=== PATIENT | female | born 1965 ===

== ENCOUNTER 2018-04-29 10:01 | Inpatient (IN) | payer OTHER ==
[2018-04-29 10:05] VITALS: BMI 18.4
[2018-04-29] MEDS ORDERED: Sodium Chloride 0.9% 1,000 ML IV STA (10:33)
--- NOTE | 2018-04-29 10:37 | ED PDOC ---
HPI: Abdomen Additional Complaint(s): Stephanie Coburn [id number] CC: RUQ abdominal pain HPI: 53 yo female with PMHx prediabetes presents to ER with complaints of intermittent RUQ abdominal pain (12/18) that radiates to her back associated with nausea x 2 days. Patient reports she had spaghetti with lots of cheese 2 days ago. Patient took pain medication that was sent from [place] with some relief. States she has hx similar pain about 6 months and her PMD told her she had gallstone (no images were done). Denies any nausea now. Denies any chest pain, dyspnea, cough, headache, dizziness, vomiting, calf pain, fever or chills. PMD: Dr. Kirby PMHx: prediabetes PSHx: denies Social hx: denies smoking cigarettes, drinking ETOH or using drugs Family hx: denies hx DMII, HTN or CA Medication: pain meds prn Allergies: PCN: seizures <Sultan Cecilio - Last Filed: 04/29/18 14:17> History Per: Patient <Jayy Estes - Last Filed: 04/29/18 14:47> Time Seen by Provider: 04/29/18 10:08 Chief Complaint (Nursing): Abdominal Pain Supervising Attending Note - Supervising Attending Note The Documented history was done by the: Physician Special Procedure Tech The documented physical exam was done by the: Physician Special Procedure Tech The documented procedures were done by the: Physician Special Procedure Tech - Attestation: I have personally seen and examined this patient.: Yes I have fully participated in the care of the patient.: Yes I have reviewed all pertinent clinical information: Yes - Notes: Notes:: RUQ pain. Hx of gallstones. <Jayy Estes M - Last Filed: 04/29/18 14:47> Past Medical History Vital Signs: Last Vital Signs Temp 97.8 F 04/29/18 10:04 Pulse 91 H 04/29/18 10:04 Resp 18 04/29/18 10:04 BP 110/76 04/29/18 10:04 Pulse Ox 99 04/29/18 10:04 <Sultan Cecilio - Last Filed: 04/29/18 14:17> Vital Signs: Last Vital Signs Temp 97.8 F 04/29/18 10:04 Pulse 91 H 04/29/18 10:04 Resp 18 04/29/18 10:04 BP 110/76 04/29/18 10:04 Pulse Ox 99 04/29/18 10:50 - Family History Family History: States: Unknown Family Hx <Jayy Estes Letha - Last Filed: 04/29/18 14:47> - Allergies Allergies/Adverse Reactions: Allergies Allergy/AdvReac Type Severity Reaction Status Date / Time Penicillins AdvReac HEADACHE Verified 04/29/18 10:32 Review of Systems ROS Statement: Except As Marked, All Systems Reviewed And Found Negative <P[place] - Last Filed: 04/29/18 14:17> Physical Exam - Physical Exam Appears: Positive for: Non-toxic, No Acute Distress Head Exam: Positive for: ATRAUMATIC, NORMOCEPHALIC Skin: Positive for: Normal Color ENT: Positive for: Normal ENT Inspection Neck: Positive for: Normal, Supple Cardiovascular/Chest: Positive for: Regular Rate, Rhythm. Negative for: Murmur Respiratory: Positive for: Normal Breath Sounds. Negative for: Crackles, Rales, Rhonchi, Respiratory Distress Gastrointestinal/Abdominal: Positive for: Bowel Sounds, Soft, Tenderness (Mild RUQ tenderness, No rebound tenderness or guarding). Negative for: Organomegaly, Distended, Guarding, Rebound Extremity: Positive for: Normal ROM Neurologic/Psych: Positive for: Alert, Oriented <Phoenix - Last Filed: 04/29/18 14:17> - Physical Exam Gastrointestinal/Abdominal: Positive for: Tenderness (RUQ) <Jayy Estes M - Last Filed: 04/29/18 14:47> - Laboratory Results Result Diagrams: 04/29/18 10:40 04/29/18 10:40 - ECG O2 Sat by Pulse Oximetry: 99 - Progress ED Course And Treament: 53 yo female has intermittent RUQ abdominal pain and nausea. Plan: CBC CMP LIPASE PT/INR RUQ abdominal US IVF NS 1 L @1000CC/HR Toradol 15 mg ivp WBC wnl RUQ abdominal US shows equivocal for cholecystitis. Will start emperic tx with cipro and flagyl Will get general surgery consult for evaluation. Plan d/w Dr. Estes <Sultan Cecilio - Last Filed: 04/29/18 14:17> - Laboratory Results Result Diagrams: 04/29/18 10:40 04/29/18 10:40 Interpretation Of Abn Labs: no acute - ECG Pulse Ox Interpretation: Normal - CT Scan/US US Other Rad Studies (CT/US): Read By Radiologist Other Rad Interpretation: cholecystitis - Progress ED Course And Treament: 1424: Stable. AAOx3. Pain free. Dr. Heath on surgical consult. Spoke with Dr. Villegas, who will admit. <Jayy Estes - Last Filed: 04/29/18 14:47> Disposition <Sultan Cecilio - Last Filed: 04/29/18 14:17> - Patient ED Disposition Is Patient to be Admitted: Yes Counseled Patient/Family Regarding: Studies Performed, Diagnosis - Disposition Disposition Time: 14:00 - Pt Status Changed To: Hospital Disposition Of: Inpatient - Admit Certification Admit to Inpatient:: After my assessment, the patient will require hospitalization for at least two midnights. This is because of the severity of symptoms shown, intensity of services needed, and/or the medical risk in this patient being treated as an outpatient. - POA Present On Arrival: None <Jayy Estes - Last Filed: 04/29/18 14:47> - Clinical Impression Clinical Impression: Cholecystitis - Disposition Condition: STABLE
[2018-04-29 11:13] LABS: INR 1.1; PROTHROMBIN TIME 12.6 Seconds (9.8-13.1)
[2018-04-29 11:14] LABS: BASO % 0.1 % (0.0-2.0); LYMPH # 0.6 K/uL (1.0-4.3); LYMPH % 5.6 % (20.0-40.0); MEAN CELL VOLUME 89.4 fl (81.0-99.0); MEAN CORPUSCULAR HEMOGLOBIN 29.5 pg (27.0-31.0); MEAN PLATELET VOLUME 9.2 fl (7.2-11.7); MONO # 0.5 K/uL (0.0-0.8); MONO % 4.6 % (0.0-10.0); NEUT % 89.7 % (50.0-75.0); PLATELET COUNT 193 K/uL (130-400); RBC 4.39 Mil/uL (3.80-5.20); RED CELL DISTRIBUTION WIDTH 12.6 % (11.5-14.5); WHITE BLOOD COUNT 10.1 K/uL (4.8-10.8)
[2018-04-29 11:16] LABS: PARTIAL THROMBOPLASTIN TIME 36.2 Seconds (25.6-37.1)
[2018-04-29 11:19] LABS: ALB/GLOB RATIO 1.3 (1.0-2.1); ALBUMIN 4.5 g/dL (3.5-5.0); ALT/SGPT 47 U/L (9-52); AST/SGOT 34 U/L (14-36); BLOOD UREA NITROGEN 11 mg/dl (7-17); CALCIUM 9.3 mg/dL (8.4-10.2); GFR NON-AFRICAN AMERICAN > 60; LIPASE 111 U/L (23-300)
[2018-04-29 12:07] LABS: BANDS 1 % (0-2); LYMPHOCYTE 5 % (20-50); MONOCYTE 6 % (0-10); NEUTROPHIL 88 % (42-75); PLATELET ESTIMATE NORMAL (NORMAL); TOTAL CELLS COUNTED 100
--- NOTE | 2018-04-29 13:43 | US ---
At the [facility] date of service: 04/29/2018 HISTORY: RUQ pain COMPARISON: None. TECHNIQUE: Sonographic evaluation of the right upper quadrant of the abdomen. FINDINGS: LIVER: Measures 13.2 cm in length. Normal echogenicity of the liver parenchyma. Simple cyst in right lobe of liver, 1.1 cm. Second cyst adjacent to gallbladder fossa, 1.0 x 1.5 x 1.7 cm. No solid mass. No biliary ductal dilatation. Smooth contour. GALLBLADDER: Cholelithiasis. Thickened gallbladder wall up to 4 mm. Negative sonographic Parnell sign. Trace pericholecystic fluid. Findings equivocal for acute cholecystitis. COMMON BILE DUCT: Measures 7 mm. No stones. No dilatation. PANCREAS: Unremarkable as visualized. No mass. No ductal dilatation. RIGHT KIDNEY: Measures 12.9 cm in length. Normal echogenicity. No calculus, mass, or hydronephrosis. AORTA: No aneurysmal dilatation. IVC: Unremarkable. OTHER FINDINGS: None . IMPRESSION: Cholelithiasis, thickened gallbladder wall and trace pericholecystic fluid, without sonographic Parnell sign. Findings equivocal for cholecystitis. If clinically warranted consider further evaluation with radionuclide hepatobiliary scan. Two simple cysts in liver. No additional abnormality.
[2018-04-29] MEDS ORDERED: metroNIDAZOLE 500mg/100ml NS 100 ML IV STA (14:02)
[2018-04-29] MEDS ORDERED: Ciprofloxacin 400mg/200ml D5W 400 MG/200 ML BAG IV STA (14:02)
[2018-04-29] MEDS ORDERED: Ciprofloxacin 400mg/200ml D5W 400 MG/200 ML BAG IVPB ONE (14:24)
--- NOTE | 2018-04-29 14:53 | CP.PCM.CON ---
History of Present Illness - History of Present Illness History of Present Illness: 53 y.o. female comes to the hospital c/o 3 days history of RUQ and epigastric abdominal pain. Denies any nausea or vomiting, no fever or chills, denies any diarrhea or constipation. States that had similar pains before but not as sev ere. Denies any sick contacts at home. No urinary symptoms, no other complains at present time. Review of Systems - Constitutional Constitutional: As Per HPI - EENT Eyes: Other (unremarkable) Ears: Other (unremarkable) Nose/Mouth/Throat: Other (unremarkable) - Breasts Breasts: Other (unremarkable) - Cardiovascular Cardiovascular: Other (unremarkable) - Respiratory Respiratory: Other (unremarkable) - Gastrointestinal Gastrointestinal: As Per HPI - Genitourinary Genitourinary: As Per HPI - Musculoskeletal Musculoskeletal: Other (unremarkable) - Integumentary Integumentary: Other (unremarkable) - Neurological Neurological: Other (unremarkable) - Psychiatric Psychiatric: Other (unremarkable) - Endocrine Endocrine: Other (unremarkable) - Hematologic/Lymphatic Hematologic: Other (unremarkable) Past Patient History - Past Social History Smoking Status: Never Smoked - CARDIAC Hx Cardiac Disorders: No - PULMONARY Hx Respiratory Disorders: No - NEUROLOGICAL Hx Neurological Disorder: No - HEENT Hx HEENT Problems: No - RENAL Hx Chronic Kidney Disease: No - ENDOCRINE/METABOLIC Hx Diabetes Mellitus Type 2: Yes ("prediabetes") - HEMATOLOGICAL/ONCOLOGICAL Hx Blood Disorders: No - INTEGUMENTARY Hx Dermatological Problems: No - MUSCULOSKELETAL/RHEUMATOLOGICAL Hx Musculoskeletal Disorders: No - GENITOURINARY/GYNECOLOGICAL Hx Genitourinary Disorders: No - PSYCHIATRIC Hx Psychophysiologic Disorder: No Hx Substance Use: No - SURGICAL HISTORY Hx Surgeries: No - ANESTHESIA Hx Anesthesia: No Meds Allergies/Adverse Reactions: Allergies Allergy/AdvReac Type Severity Reaction Status Date / Time Penicillins AdvReac HEADACHE Verified 04/29/18 10:32 - Medications Medications: Current Medications Ciprofloxacin (Cipro 400mg/200ml Dsw) 400 mg in 200 mls @ 200 mls/hr IV STAT STA; Protocol Stop: 04/29/18 15:01 Last Admin: 04/29/18 14:30 Dose: 200 mls/hr Metronidazole (Flagyl 500mg/100ml Ns) 100 mls @ 100 mls/hr IV STAT STA; Protocol Stop: 04/29/18 15:01 Physical Exam - Constitutional Appears: Well, Non-toxic, No Acute Distress - Head Exam Head Exam: ATRAUMATIC, NORMAL INSPECTION, NORMOCEPHALIC - Eye Exam Eye Exam: EOMI, Normal appearance, PERRL Pupil Exam: NORMAL ACCOMODATION, PERRL - ENT Exam ENT Exam: Mucous Membranes Moist, Normal Exam - Neck Exam Neck exam: Positive for: Full Rom, Normal Inspection - Respiratory Exam Respiratory Exam: Clear to Auscultation Bilateral, NORMAL BREATHING PATTERN - Cardiovascular Exam Cardiovascular Exam: REGULAR RHYTHM, +S1, +S2 - GI/Abdominal Exam GI & Abdominal Exam: Normal Bowel Sounds, Soft Additional comments: tender in the RUQ, ND, no rebound, no guarding, negative Parnell's sign - Rectal Exam Rectal Exam: Deferred - Extremities Exam Extremities exam: Positive for: full ROM, normal inspection - Back Exam Back exam: NORMAL INSPECTION - Neurological Exam Neurological exam: Alert, CN II-XII Intact, Normal Gait, Oriented x3 - Psychiatric Exam Psychiatric exam: Normal Affect, Normal Mood - Skin Skin Exam: Dry, Intact, Normal Color, Warm Results - Vital Signs Recent Vital Signs: Last Vital Signs Temp 98.7 F 04/29/18 14:48 Pulse 62 04/29/18 14:48 Resp 16 04/29/18 14:48 BP 117/72 04/29/18 14:48 Pulse Ox 99 04/29/18 14:48 - Labs Result Diagrams: 04/29/18 10:40 04/29/18 10:40 Labs: Laboratory Results - last 24 hr 04/29/18 04/29/18 04/29/18 10:40 10:40 10:40 WBC 10.1 RBC 4.39 Hgb 13.0 Hct 39.2 MCV 89.4 MCH 29.5 MCHC 33.0 RDW 12.6 Plt Count 193 MPV 9.2 Neut % (Auto) 89.7 H Lymph % (Auto) 5.6 L [place] % (Auto) 4.6 Eos % (Auto) 0.0 Baso % (Auto) 0.1 Neut # (Auto) 9.0 H Lymph # (Auto) 0.6 L [place] # (Auto) 0.5 Eos # (Auto) 0.0 Baso # (Auto) 0.0 Neutrophils % (Manual) 88 H Band Neutrophils % 1 Lymphocytes % (Manual) 5 L Monocytes % (Manual) 6 Platelet Estimate Normal RBC Morphology Normal PT 12.6 INR 1.1 APTT 36.2 Sodium 140 Potassium 3.8 Chloride 104 Carbon Dioxide 26 Anion Gap 14 BUN 11 Creatinine 0.5 L Est GFR ( Amer) > 60 Est GFR (Non-Af Amer) > 60 Random Glucose 127 H Calcium 9.3 Total Bilirubin 0.8 AST 34 ALT 47 Alkaline Phosphatase 72 Total Protein 7.9 Albumin 4.5 Globulin 3.4 Albumin/Globulin Ratio 1.3 Lipase 111 - Imaging and Cardiology US - abdomen Status: Image reviewed by me, Report reviewed by me Assessment & Plan - Assessment and Plan (Free Text) Assessment: 53 y.o. female with acute cholecystitis Plan: - Keep NPO - IV fluid hydration - pain control - Antibiotics - Zofran prn - Hold any anticoagulation - Plan for cholecystectomy in the morning - Will follow
--- NOTE | 2018-04-29 15:24 | CP.PCM.HP ---
History of Present Illness - History of Present Illness History of Present Illness: 53 yo female with PMHx prediabetes presents to ER with complaints of RUQ abdominal pain that started 3 days ago. Pain is in RUQ was mild 3 days ago but progressively worseniend to 10/10 yesterday, radiating to back and not completely alleviated by any medication. Patient reports eating potato, meatball, pasta, rice for last few days but now her appetite is decreased. Patient took pain medication called Plidan that was sent from [place] with some relief. States she has hx similar pain in the past but never this severe. Denies any nausea, chest pain, dyspnea, cough, headache, dizziness, vomiting, calf pain, fever or chills. Patient reports climbing 2-3 flights of stairs without getting SOB or CP. PMD: Dr. Kirby PMHx: Prediabetes(Was on Metformin in past but not currently) PSHx: Denies Social hx: Denies smoking cigarettes, drinking ETOH or using drugs Family hx: Denies hx DMII, HTN or CA Medication: pain meds prn, (Tried medication called Plidan from [place]) Allergies: PCN Present on Admission - Present on Admission Any Indicators Present on Admission: No History of DVT/PE: No History of Uncontrolled Diabetes: No Urinary Catheter: No Decubitus Ulcer Present: No Review of Systems - Review of Systems All systems: reviewed and no additional remarkable complaints except Review of Systems: RUQ pain radiating to back and loss of appetite - Constitutional Constitutional: absent: Chills, Fever, Headache - EENT Eyes: absent: Change in Vision - Cardiovascular Cardiovascular: absent: Chest Pain, Chest Pain at Rest, Chest Pain with Activity, Dyspnea, Dyspnea on Exertion - Respiratory Respiratory: absent: Cough - Gastrointestinal Gastrointestinal: Abdominal Pain. absent: Constipation, Diarrhea, Nausea, Vomiting - Genitourinary Genitourinary: absent: Change in Urinary Stream - Musculoskeletal Musculoskeletal: Back Pain. absent: Abnormal Gait - Psychiatric Psychiatric: Change in Appetite Past Patient History - Infectious Disease Hx of Infectious Diseases: None - Past Social History Smoking Status: Never Smoked - CARDIAC Hx Cardiac Disorders: No - PULMONARY Hx Respiratory Disorders: No - NEUROLOGICAL Hx Neurological Disorder: No - HEENT Hx HEENT Problems: No - RENAL Hx Chronic Kidney Disease: No - ENDOCRINE/METABOLIC Hx Diabetes Mellitus Type 2: Yes ("prediabetes") - HEMATOLOGICAL/ONCOLOGICAL Hx Blood Disorders: No - INTEGUMENTARY Hx Dermatological Problems: No - MUSCULOSKELETAL/RHEUMATOLOGICAL Hx Musculoskeletal Disorders: No - GENITOURINARY/GYNECOLOGICAL Hx Genitourinary Disorders: No - PSYCHIATRIC Hx Psychophysiologic Disorder: No Hx Substance Use: No - SURGICAL HISTORY Hx Surgeries: No - ANESTHESIA Hx Anesthesia: No Meds Allergies/Adverse Reactions: Allergies Allergy/AdvReac Type Severity Reaction Status Date / Time Penicillins AdvReac HEADACHE Verified 04/29/18 10:32 Physical Exam - Constitutional Appears: Non-toxic, In Acute Distress - Head Exam Head Exam: ATRAUMATIC, NORMOCEPHALIC - Eye Exam Eye Exam: EOMI, Normal appearance - ENT Exam ENT Exam: Mucous Membranes Moist - Neck Exam Neck exam: Positive for: Full Rom - Respiratory Exam Respiratory Exam: Clear to Auscultation Bilateral. absent: Rales, Rhonchi, Wheezes, Respiratory Distress - Cardiovascular Exam Cardiovascular Exam: REGULAR RHYTHM, +S1, +S2. absent: Systolic Murmur - GI/Abdominal Exam GI & Abdominal Exam: Normal Bowel Sounds, Tenderness. absent: Distended Additional comments: + Parnell sign - Extremities Exam Extremities exam: Negative for: calf tenderness, pedal edema, tenderness - Neurological Exam Neurological exam: Alert, Altered, Oriented x3 - Psychiatric Exam Psychiatric exam: Normal Affect, Normal Mood - Skin Skin Exam: Dry, Intact, Normal Color, Warm Results - Vital Signs Recent Vital Signs: Last Vital Signs Temp 98.7 F 04/29/18 14:53 Pulse 62 04/29/18 14:53 Resp 16 04/29/18 14:53 BP 117/72 04/29/18 14:53 Pulse Ox 99 04/29/18 14:48 - Labs Result Diagrams: 04/29/18 10:40 04/29/18 10:40 Labs: Laboratory Results - last 24 hr 04/29/18 04/29/18 04/29/18 10:40 10:40 10:40 WBC 10.1 RBC 4.39 Hgb 13.0 Hct 39.2 MCV 89.4 MCH 29.5 MCHC 33.0 RDW 12.6 Plt Count 193 MPV 9.2 Neut % (Auto) 89.7 H Lymph % (Auto) 5.6 L [place] % (Auto) 4.6 Eos % (Auto) 0.0 Baso % (Auto) 0.1 Neut # (Auto) 9.0 H Lymph # (Auto) 0.6 L [place] # (Auto) 0.5 Eos # (Auto) 0.0 Baso # (Auto) 0.0 Neutrophils % (Manual) 88 H Band Neutrophils % 1 Lymphocytes % (Manual) 5 L Monocytes % (Manual) 6 Platelet Estimate Normal RBC Morphology Normal PT 12.6 INR 1.1 APTT 36.2 Sodium 140 Potassium 3.8 Chloride 104 Carbon Dioxide 26 Anion Gap 14 BUN 11 Creatinine 0.5 L Est GFR ( Amer) > 60 Est GFR (Non-Af Amer) > 60 Random Glucose 127 H Calcium 9.3 Total Bilirubin 0.8 AST 34 ALT 47 Alkaline Phosphatase 72 Total Protein 7.9 Albumin 4.5 Globulin 3.4 Albumin/Globulin Ratio 1.3 Lipase 111 Assessment & Plan - Assessment and Plan (Free Text) Assessment: 53 y.o. female with PMHx of prediabetes not on any medications presents with 3 days of RUQ pain. US abdomen consistent with acute cholecystitis. Surgery on board. Scheduled for cholecystitis tomorrow. US Abdomen: Cholelithiasis, thickened gallbladder wall and trace pericholecystic fluid, without sonographic Parnell sign. Findings equivocal for cholecystitis. Plan: Acute cholecystitis - CBC, CMP, PT/PTT/INR WNL - Cipro 400 Q12 and Flagyl 500 mg Q8hr - Patient to remain NPO - Zofran prn for nausea - Hold any anticoagulation - Morphine 2mg IVP Q4 and Toradol 15 mg IVP for pain control - Patient medically stable, pending EKG, CXR - Surgery on Board: Scheduled for cholecystitis tomorrow AM. DVT Prophylaxis - SCDs Code status - Full code
--- NOTE | 2018-04-29 17:41 | RAD ---
Date of service: 04/29/2018 PROCEDURE: CHEST RADIOGRAPH, 1 VIEW HISTORY: pre-op COMPARISON: None available. FINDINGS: LUNGS: The lungs are hyperinflated and there is peribronchial thickening with chronic changes in both lungs. No focal consolidation. PLEURA: No pneumothorax or pleural effusion. CARDIOVASCULAR: The heart is normal in size. No aortic atherosclerotic calcifications present. OSSEOUS STRUCTURES: Within normal limits for the patient's age. VISUALIZED UPPER ABDOMEN: Normal. OTHER FINDINGS: None. IMPRESSION: No active pulmonary disease.
[2018-04-29] MEDS: Potassium Ch 20mEq in D5-1/2NS 1,000 ML IV SCH (18:00)
[2018-04-29] MEDS: metroNIDAZOLE 500mg/100ml NS 100 ML IVPB SCH (18:05)
[2018-04-29] MEDS: Ciprofloxacin 400mg/200ml D5W 400 MG/200 ML BAG IVPB SCH (22:05)
[2018-04-30] MEDS: metroNIDAZOLE 500mg/100ml NS 100 ML IVPB SCH ×3 (01:04→16:14)
[2018-04-30] MEDS: Potassium Ch 20mEq in D5-1/2NS 1,000 ML IV SCH (05:00)
[2018-04-30 06:15] LABS: HEMOGLOBIN 11.4 g/dL (12.0-16.0); MEAN CELL VOLUME 87.9 fl (81.0-99.0); MEAN CORPUSCULAR HEMOGLOBIN 29.9 pg (27.0-31.0); RBC 3.83 Mil/uL (3.80-5.20); RED CELL DISTRIBUTION WIDTH 12.6 % (11.5-14.5); WHITE BLOOD COUNT 6.5 K/uL (4.8-10.8)
[2018-04-30] MEDS ORDERED: Bupivacaine HCl 0.5% PF (30 ml) Inj ONE (07:22)
[2018-04-30] MEDS ORDERED: Propofol 10 mg/ml Inj (20 ML) ONE (07:25)
[2018-04-30] MEDS ORDERED: Succinylcholine 200 mg/10 ml Inj IV ONE (07:26)
[2018-04-30] MEDS ORDERED: Midazolam 2 MG/2 ML VIAL ONE (07:26)
[2018-04-30] MEDS ORDERED: Lidocaine 2% MPF (5 ml) Inj ONE (07:26)
[2018-04-30] MEDS ORDERED: Rocuronium 10 mg/ml (5 ml) ONE ×2 (07:27→09:26)
[2018-04-30] MEDS ORDERED: Lactated Ringer's 1,000 ML IV ONE ×2 (08:05→10:00)
[2018-04-30] MEDS: Ciprofloxacin 400mg/200ml D5W 400 MG/200 ML BAG IVPB SCH ×2 (09:56→21:12)
[2018-04-30] MEDS ORDERED: Ciprofloxacin 400mg/200ml D5W IVPB ONE (10:00)
[2018-04-30] MEDS ORDERED: metroNIDAZOLE 500mg/100ml NS IVPB ONE (10:15)
--- NOTE | 2018-04-30 10:28 | PCM.SURG1 ---
Surgeon's Initial Post Op Note - Surgeon's Notes Surgeon: Dr Melvin Chemistry Technologist: Dr Muñoz, Dr Osborne PGY4, Dr Angeles PGY1 Type of Anesthesia: General Endo Pre-Operative Diagnosis: acute cholecystitis Operative Findings: chronic cholecystitis with significant intra-abdominal adhesions Post-Operative Diagnosis: as above Operation Performed: laparoscopy. lysis of adhesions. open cholecystectomy. repair of gastrotomy Specimen/Specimens Removed: gallbladder Estimated Blood Loss: EBL {In ML}: 50 Blood Products Given: N/A Drains Used: Neeraj Post-Op Condition: Good Date of Surgery/Procedure: 04/30/18 Time of Surgery/Procedure: 10:28
[2018-04-30] MEDS: Lactated Ringer's 1,000 ML IV SCH ×3 (10:40→23:00)
[2018-04-30] MEDS ORDERED: Neostigmine 1:1000 (1 mg/ml) Inj ONE (10:45)
[2018-04-30] MEDS: HYDROmorphone 0.5 mg/0.5 ml ISec IVP PRN ×3 (11:12→12:00)
[2018-04-30] MEDS ORDERED: HYDROmorphone 0.5 mg/0.5 ml ISec IVP PRN (12:04)
[2018-04-30] MEDS ORDERED: Acetaminophen IV 1,000 MG in IV SUPPLIES 0 ML IVPB ONE (12:09)
--- NOTE | 2018-04-30 12:30 | CP.PCM.PN ---
<Sridhar Rodriguez - Last Filed: 04/30/18 15:16> Subjective - Date & Time of Evaluation Date of Evaluation: 04/30/18 Time of Evaluation: 12:10 - Subjective Subjective: 53 y/o F admitted for acute cholesystitis, s/p cholecystectomy on 04/30. POD 0 Patient seen and examined at bedside s/p surgery. Patient alert, awake and oriented x 3. Patient has received Morphine 2 mg IVP. Patient underwent Lap cholecystectomy converted to open due to extensive adhesions and repair of gastrotomy. Currently on NPO with NG tube placed. Patient denies Fever, chills, nausea, vomiting, diarrhea, CP or SOB. Objective - Vital Signs/Intake and Output Vital Signs (last 24 hours): Temp Pulse Resp BP Pulse Ox 96.4 F L 77 18 122/74 100 04/30/18 11:05 04/30/18 11:05 04/30/18 11:05 04/30/18 11:05 04/30/18 11:05 Intake and Output: 04/30/18 04/30/18 06:59 18:59 Intake Total 1400 Balance 1400 - Medications Medications: Current Medications Hydromorphone HCl (Dilaudid) 0.5 mg IVP Q15M PRN PRN Reason: Pain, severe (8-10) Stop: 04/30/18 13:13 Ciprofloxacin (Cipro 400mg/200ml Dsw) 400 mg in 200 mls @ 200 mls/hr IVPB Q12 AKIL; Protocol Last Admin: 04/30/18 09:56 Dose: Not Given Metronidazole (Flagyl 500mg/100ml Ns) 100 mls @ 100 mls/hr IVPB Q8 AKIL; Protocol Last Admin: 04/30/18 09:56 Dose: Not Given Lactated Ringer's (Lactated Ringer's) 1,000 mls @ 80 mls/hr IV .[id number] AKIL Metoclopramide HCl (Reglan) 10 mg IVP ONCE PRN PRN Reason: Nausea/Vomiting Stop: 04/30/18 13:15 Morphine Sulfate (Morphine) 2 mg IVP Q4 PRN PRN Reason: Pain, Mild (1-3) Ondansetron HCl (Zofran Inj) 4 mg IVP Q4 PRN PRN Reason: Nausea/Vomiting - Labs Labs: 04/30/18 05:30 04/29/18 10:40 PT 12.6 Seconds (9.8-13.1) 04/29/18 10:40 INR 1.1 04/29/18 10:40 APTT 36.2 Seconds (25.6-37.1) 04/29/18 10:40 - Constitutional Appears: No Acute Distress - Head Exam Head Exam: ATRAUMATIC, NORMOCEPHALIC - Eye Exam Eye Exam: EOMI, Normal appearance - ENT Exam ENT Exam: Mucous Membranes Moist - Respiratory Exam Respiratory Exam: Clear to Ausculation Bilateral. absent: Rales, Rhonchi, Wheezes, Respiratory Distress - Cardiovascular Exam Cardiovascular Exam: REGULAR RHYTHM, +S1, +S2. absent: Murmur - GI/Abdominal Exam GI & Abdominal Exam: Soft, Tenderness, Normal Bowel Sounds. absent: Distended Additional comments: Drain present, abdomen mild tenderness and nondistended. - Neurological Exam Neurological Exam: Alert, Awake, Oriented x3 - Psychiatric Exam Psychiatric exam: Normal Affect, Normal Mood - Skin Skin Exam: Dry, Intact, Normal Color Assessment and Plan - Assessment and Plan (Free Text) Assessment: 53 y.o. female with PMHx of prediabetes admitted for 3 days of RUQ pain and diagnosed with with acute cholecystitis. S/P surgery on 04/30 Lap cholecystect lilli converted to open. POD#0 US Abdomen: Cholelithiasis, thickened gallbladder wall and trace pericholecystic fluid, without sonographic Parnell sign. Findings equivocal for cholecystitis. Plan: Plan: Acute cholecystitis s/p Cholecystectomy - POD#0 - Continue Cipro 400 Q12 and Flagyl 500 mg Q8hr(day 2) - Patient to remain NPO - Zofran prn for nausea - Hold any anticoagulation - COntinue IVF 80 ml/hr - Morphine 2mg IVP Q4 - EKG NSR, RBB - F/U CBC, CMP tomorrow am - F/U Blood Cx DVT Prophylaxis - SCDs Code status - Full code <Jenny Bliss - Last Filed: 04/30/18 15:44> Objective - Vital Signs/Intake and Output Vital Signs (last 24 hours): Temp Pulse Resp BP Pulse Ox 99.2 F 93 H 18 106/66 96 04/30/18 13:10 04/30/18 13:10 04/30/18 13:10 04/30/18 13:10 04/30/18 13:10 Intake and Output: 04/30/18 04/30/18 06:59 18:59 Intake Total 1680 Balance 1680 - Medications Medications: Current Medications Ciprofloxacin (Cipro 400mg/200ml Dsw) 400 mg in 200 mls @ 200 mls/hr IVPB Q12 AKIL; Protocol Last Admin: 04/30/18 09:56 Dose: Not Given Metronidazole (Flagyl 500mg/100ml Ns) 100 mls @ 100 mls/hr IVPB Q8 AKIL; Protocol Last Admin: 04/30/18 09:56 Dose: Not Given Lactated Ringer's (Lactated Ringer's) 1,000 mls @ 80 mls/hr IV .[id number] AKIL Morphine Sulfate (Morphine) 2 mg IVP Q4 PRN PRN Reason: Pain, Mild (1-3) Ondansetron HCl (Zofran Inj) 4 mg IVP Q4 PRN PRN Reason: Nausea/Vomiting - Labs Labs: 04/30/18 05:30 04/29/18 10:40 PT 12.6 Seconds (9.8-13.1) 04/29/18 10:40 INR 1.1 04/29/18 10:40 APTT 36.2 Seconds (25.6-37.1) 04/29/18 10:40 Attending/Attestation - Attestation I have personally seen and examined this patient.: Yes I have fully participated in the care of the patient.: Yes I have reviewed all pertinent clinical information, including history, physical exam and plan: Yes Notes (Text): 04/30/18 15:44 agree with findings and plan as above lap aleah to open with adhesions. admit pt and continue iv abx surgery consult hd stable nad
--- NOTE | 2018-04-30 15:54 | CARD ---
APPROVED REPORT Date of service: 04/29/2018 EKG Measurement Heart [id number] <Conclusion> Normal sinus rhythm Low voltage QRS Incomplete RBBB Septal infarct, age undetermined Lateral infarct, age undetermined Abnormal ECG
[2018-04-30] MEDS: Morphine 4 MG/ML VIAL IVP PRN ×2 (15:55→19:43)
--- NOTE | 2018-04-30 16:14 | CARD ---
APPROVED REPORT Date of service: 04/30/2018 EKG Measurement Heart [id number] <Conclusion> Normal sinus rhythm Incomplete right bundle branch block Borderline ECG
[2018-05-01] MEDS: metroNIDAZOLE 500mg/100ml NS 100 ML IVPB SCH ×3 (00:19→15:59)
[2018-05-01] MEDS: Morphine 4 MG/ML VIAL IVP PRN ×4 (00:23→18:20)
[2018-05-01 07:10] LABS: BASO % 0.1 % (0.0-2.0); HEMOGLOBIN 10.6 g/dL (12.0-16.0); LYMPH # 0.5 K/uL (1.0-4.3); LYMPH % 5.2 % (20.0-40.0); MEAN CELL VOLUME 88.9 fl (81.0-99.0); MEAN CORPUSCULAR HEMOGLOBIN 30.2 pg (27.0-31.0); MEAN PLATELET VOLUME 9.2 fl (7.2-11.7); MONO # 0.8 K/uL (0.0-0.8); MONO % 8.4 % (0.0-10.0); NEUT # 8.5 K/uL (1.8-7.0); NEUT % 86.3 % (50.0-75.0); RBC 3.51 Mil/uL (3.80-5.20); RED CELL DISTRIBUTION WIDTH 12.7 % (11.5-14.5); WHITE BLOOD COUNT 9.9 K/uL (4.8-10.8)
[2018-05-01 07:31] LABS: ALB/GLOB RATIO 1.1 (1.0-2.1); ALBUMIN 3.2 g/dL (3.5-5.0); ALT/SGPT 69 U/L (9-52); AST/SGOT 70 U/L (14-36); BLOOD UREA NITROGEN 8 mg/dl (7-17); CALCIUM 8.3 mg/dL (8.4-10.2); GFR NON-AFRICAN AMERICAN > 60
--- NOTE | 2018-05-01 07:52 | OP ---
PROCEDURE DATE: 03/31/2018 PREOPERATIVE DIAGNOSIS: Acute cholecystitis. POSTOPERATIVE DIAGNOSIS: Acute cholecystitis. PROCEDURE: Laparoscopy converted to open cholecystectomy and closure of gastrotomy. SURGEON: Tomi Melvin MD AT RISK PARAPROFESSIONAL: SECOND AT RISK PARAPROFESSIONAL: Ash ANESTHESIA: General endotracheal intubation. INTRAVENOUS FLUIDS: Crystalloids. ESTIMATED BLOOD LOSS: 50 mL. INTRAOPERATIVE FINDINGS: Chronic and acute cholecystitis with pus in the gallbladder, extensive intra-abdominal adhesions to the gallbladder. SPECIMEN: Gallbladder. BRIEF HISTORY: Ms. Olguin is a very pleasant 53-year-old female who came to the hospital complaining of epigastric and right upper quadrant abdominal pain. Of note, the patient had similar symptoms several times before, and they were treated conservatively. However this time, the patient was very tender, was admitted to the hospital, treated with antibiotics and was taken to the operating room for the above stated procedure. All the risks and benefits of the procedure were explained to the patient and with the patient having a full understanding of all the risks and benefits involved, informed consent was obtained, and the patient was taken to the operating for above-stated procedure. DESCRIPTION OF PROCEDURE: The patient was brought into the operating room and placed supine on the operating room table. Bilateral Flowtron boots were applied to the patient's lower extremities. After successful induction of anesthesia and successful endotracheal intubation by the anesthesia team, the patient's abdomen was prepped with ChloraPrep stick and draped in a standard surgical fashion. Prior to the beginning of the procedure, a time-out was called in the room, and everyone in the room were in agreement. Using a Veress needle, the patient's abdomen was entered at the umbilicus, and pneumoperitoneum was achieved with good opening pressures. Subsequent to that, using an 11-blade scalpel knife, approximately 1-cm incision was made in the umbilicus in a longitudinal fashion. Subsequent to that, an 11-mm trocar was introduced into the patient's abdomen. At this point in time, a 5-mm 0-degree scope was introduced into the patient's abdomen, and the abdomen was inspected. We immediately were able to visualize severe adhesions to the gallbladder of the stomach as well as omentum. At this point in time, attention was turned to the subxiphoid area. Using 11-blade scalpel knife, approximately a 5-mm incision was made in a transverse fashion. Subsequent to that, a 5-mm trocar was introduced into the patient's abdomen. Subsequent to that, attention was turned to the right side of the patient's abdomen. Using an 11-blade scalpel knife, two 5-mm incisions were made in a transverse fashion. Subsequent to that, two 5-mm trocars were introduced into the patient's abdomen. At this point in time, using suction and irrigation device, the omentum and adhesed stomach were gently teased off the gallbladder fossa; however, they appeared to be severely stuck and upon further dissection, it appeared that there was a small gastrotomy made from dissection. So at this point in time, the procedure was converted to open. Using a 10-blade scalpel knife, approximately 10-cm Latia incision was made in the left upper quadrant of the patient's abdomen approximately 2 fingerbreadths below the costal margin. Subsequent to that, dissection was carried down with electrocautery until the fascial layer was encountered. Fascia was transected with electrocautery. Subsequent to that, the muscle was transected with electrocautery as well. A posterior rectus sheath was encountered that was transected with electrocautery. At this point in time, the patient's abdominal cavity was entered. The fascial layer of the entire length of the incision was opened up. At this point in time, the stomach was inspected. There appeared to be approximately 5-mm gastrotomy from the dissection in the anterior wall of the stomach. A couple of Allis clamps were placed on hold, and blue load TA 30 mm was fired in order to close the hole. Redundant tissue was transected with curved Farfan. Once this was accomplished, attention was turned to the gallbladder. The adhesions were teased off from the gallbladder. Subsequent to that, the cystic duct was isolated to the right angle. Two 2-0 silk ties were placed on the duct. Subsequent to that, using the 11-blade scalpel knife, the duct was transected distal to the ties. At this point in time, the cystic artery was isolated and was clipped with medium-sized clips. Once this was accomplished, the gallbladder was dissected off the gallbladder fossa using the electrocautery and blunt dissection. At this point in time, we encountered the serial branch of the cystic artery that was ligated off with a 3-0 silk suture and a SH needle. Once this was accomplished, the gallbladder was transected off the gallbladder fossa and passed off to the [facility] as a specimen. At this point in time, abdominal cavity was irrigated and dried, and hemostasis was confirmed. A #19 Neeraj drain was brought out for the most lateral incision for laparoscopic port and secured in place with 0 silk suture. The tip of the drain was placed into the gallbladder fossa. At this point in time, the posterior rectus sheath was closed with a running #1 PDS suture closing posterior rectus sheath and subsequent to that anterior rectus sheath. At this point in time, the wound was irrigated and dried. Attention was turned to the umbilical area. One interrupted 0 Vicryl suture was placed, and UR-5 needle was placed to close the fascial layer. Subsequent to that, the skin was closed with mary. The patient's abdominal wall was washed and dried. A clean dressing was applied to the side of the incision, and 4x4 and a medium-sized Tegaderm were applied to the site of insertional Neeraj drain. The patient was successfully extubated by the anesthesia team, transferred to a stretcher and taken to the recovery room in a stable condition. At the end of the procedure, all instrument counts, needles and sponges were correct. Tomi Melvin MD
[2018-05-01] MEDS: Ciprofloxacin 400mg/200ml D5W 400 MG/200 ML BAG IVPB SCH ×2 (09:02→21:33)
--- NOTE | 2018-05-01 09:13 | CP.PCM.PN ---
<Manjinder Johnson - Last Filed: 05/01/18 20:11> Subjective - Date & Time of Evaluation Date of Evaluation: 05/01/18 Time of Evaluation: 09:10 - Subjective Subjective: General Surgery Progress Note for Dr. Muñoz 53F seen and evaluated at bedside this morning. No acute events overnight. Patient states mild incisional pain, well controlled with medication. No passing of flatus or BM. NGT output 15cc overnight. Neeraj drain serosanginous output 90cc overnight. Denies f/c, n/v/d, SOB, CP, or urinary symptoms. Objective - Vital Signs/Intake and Output Vital Signs (last 24 hours): Temp Pulse Resp BP Pulse Ox 98.5 F 93 H 20 115/71 95 05/01/18 08:18 05/01/18 08:18 05/01/18 08:18 05/01/18 08:18 05/01/18 08:18 - Medications Medications: Current Medications Ciprofloxacin (Cipro 400mg/200ml Dsw) 400 mg in 200 mls @ 200 mls/hr IVPB Q12 AKIL; Protocol Last Admin: 05/01/18 09:02 Dose: 200 mls/hr Metronidazole (Flagyl 500mg/100ml Ns) 100 mls @ 100 mls/hr IVPB Q8 AKIL; Protocol Last Admin: 05/01/18 09:02 Dose: 100 mls/hr Lactated Ringer's (Lactated Ringer's) 1,000 mls @ 80 mls/hr IV .[id number] AKIL Last Admin: 04/30/18 23:00 Dose: Not Given Morphine Sulfate (Morphine) 2 mg IVP Q4 PRN PRN Reason: Pain, Mild (1-3) Last Admin: 05/01/18 04:34 Dose: 2 mg Ondansetron HCl (Zofran Inj) 4 mg IVP Q4 PRN PRN Reason: Nausea/Vomiting - Labs Labs: 05/01/18 05:35 05/01/18 05:35 PT 12.6 Seconds (9.8-13.1) 04/29/18 10:40 INR 1.1 04/29/18 10:40 APTT 36.2 Seconds (25.6-37.1) 04/29/18 10:40 - Constitutional Appears: Well, Non-toxic, No Acute Distress - Head Exam Head Exam: ATRAUMATIC, NORMAL INSPECTION, NORMOCEPHALIC - Eye Exam Eye Exam: EOMI - ENT Exam ENT Exam: Mucous Membranes Moist - Respiratory Exam Respiratory Exam: NORMAL BREATHING PATTERN. absent: Respiratory Distress - GI/Abdominal Exam GI & Abdominal Exam: Soft, Tenderness, Normal Bowel Sounds. absent: Distended - Neurological Exam Neurological Exam: Alert, Awake - Psychiatric Exam Psychiatric exam: Normal Affect, Normal Mood - Skin Skin Exam: Dry, Intact, Normal Color, Warm Assessment and Plan - Assessment and Plan (Free Text) Assessment: 53F s/p lap converted to open cholecystectomy w/ gastrotomy repair POD1 Plan: NPO IVF Continue NGT I&Os Monitor neeraj drain output Monitor bowel function AM labs Further recommendations per Dr. Toni Johnson PGY1 <Reggie Muñoz - Last Filed: 05/01/18 20:13> Objective - Vital Signs/Intake and Output Vital Signs (last 24 hours): Temp Pulse Resp BP Pulse Ox 99 F 89 18 102/65 94 L 05/01/18 16:44 05/01/18 16:44 05/01/18 16:44 05/01/18 16:44 05/01/18 16:44 Intake and Output: 05/01/1818 18:59 06:59 Output Total 200 Balance -200 - Medications Medications: Current Medications Ciprofloxacin (Cipro 400mg/200ml Dsw) 400 mg in 200 mls @ 200 mls/hr IVPB Q12 AKIL; Protocol Last Admin: 05/01/18 09:02 Dose: 200 mls/hr Metronidazole (Flagyl 500mg/100ml Ns) 100 mls @ 100 mls/hr IVPB Q8 AKIL; Protocol Last Admin: 05/01/18 15:59 Dose: 100 mls/hr Lactated Ringer's (Lactated Ringer's) 1,000 mls @ 80 mls/hr IV .[id number] AKIL Last Admin: 04/30/18 23:00 Dose: Not Given Potassium Chloride (Potassium Cl 10meq/50ml Sterile Water) 50 mls @ 50 mls/hr IVPB Q1 AKIL Stop: 05/01/18 21:59 Last Admin: 05/01/18 18:21 Dose: 50 mls/hr Morphine Sulfate (Morphine) 2 mg IVP Q4 PRN PRN Reason: Pain, Mild (1-3) Last Admin: 05/01/18 18:20 Dose: 2 mg Ondansetron HCl (Zofran Inj) 4 mg IVP Q4 PRN PRN Reason: Nausea/Vomiting Pantoprazole Sodium (Protonix Inj) 40 mg IVP DAILY AKIL - Labs Labs: 05/01/18 05:35 05/01/18 05:35 PT 12.6 Seconds (9.8-13.1) 04/29/18 10:40 INR 1.1 04/29/18 10:40 APTT 36.2 Seconds (25.6-37.1) 04/29/18 10:40 Assessment and Plan - Assessment and Plan (Free Text) Plan: agree with resident pt comfortable, some incisional pain, NPO with NGT in place with 250cc drainage /24hrs. NPO afebrile, abd: soft, incisional tenderness, no peritoneal signs, dressing clean and dry -cont NPO -IVF -NGT -Protonix -
--- NOTE | 2018-05-01 09:57 | CP.PCM.PN ---
Subjective - Date & Time of Evaluation Date of Evaluation: 05/01/18 Time of Evaluation: 10:00 - Subjective Subjective: Seen at bedside, POD1. State she feels "ok". Afebrile overnight, no acute events. NPO. NGT in place. C/O mild abd pain. Denies nausea or vomiting. No BM. Objective - Vital Signs/Intake and Output Vital Signs (last 24 hours): Temp Pulse Resp BP Pulse Ox 98.5 F 93 H 20 115/71 95 05/01/18 08:18 05/01/18 08:18 05/01/18 08:18 05/01/18 08:18 05/01/18 08:18 - Medications Medications: Current Medications Ciprofloxacin (Cipro 400mg/200ml Dsw) 400 mg in 200 mls @ 200 mls/hr IVPB Q12 AKIL; Protocol Last Admin: 05/01/18 09:02 Dose: 200 mls/hr Metronidazole (Flagyl 500mg/100ml Ns) 100 mls @ 100 mls/hr IVPB Q8 AKIL; Protocol Last Admin: 05/01/18 09:02 Dose: 100 mls/hr Lactated Ringer's (Lactated Ringer's) 1,000 mls @ 80 mls/hr IV .[id number] AKIL Last Admin: 04/30/18 23:00 Dose: Not Given Morphine Sulfate (Morphine) 2 mg IVP Q4 PRN PRN Reason: Pain, Mild (1-3) Last Admin: 05/01/18 04:34 Dose: 2 mg Ondansetron HCl (Zofran Inj) 4 mg IVP Q4 PRN PRN Reason: Nausea/Vomiting - Labs Labs: 05/01/18 05:35 05/01/18 05:35 PT 12.6 Seconds (9.8-13.1) 04/29/18 10:40 INR 1.1 04/29/18 10:40 APTT 36.2 Seconds (25.6-37.1) 04/29/18 10:40 - Constitutional Appears: Non-toxic - Eye Exam Eye Exam: EOMI, PERRL - ENT Exam ENT Exam: Mucous Membranes Moist - Respiratory Exam Respiratory Exam: Clear to Ausculation Bilateral, NORMAL BREATHING PATTERN - Cardiovascular Exam Cardiovascular Exam: REGULAR RHYTHM, +S1, +S2. absent: Gallop - GI/Abdominal Exam GI & Abdominal Exam: Soft, Tenderness (Diffuse). absent: Guarding, Rigid, Rebou nd - Extremities Exam Extremities Exam: absent: Calf Tenderness, Pedal Edema, Tenderness - Neurological Exam Neurological Exam: Alert, Awake, Oriented x3 - Psychiatric Exam Psychiatric exam: Normal Affect, Normal Mood - Skin Skin Exam: Normal Color, Warm Assessment and Plan - Assessment and Plan (Free Text) Assessment: 53 y.o. female with PMHx of prediabetes admitted cholecystitis. S/P surgery on 04/30 Lap cholecystectomy converted to open. POD#1 Acute cholecystitis s/p open Cholecystectomy - POD#1 - S/p Open cholecystectomy and repair of gastrotomy day 1 - Stable - Continue Cipro 400 Q12 and Flagyl 500 mg Q8hr(day 3) - Patient to remain NPO - C/W NGT and drain as per Sx - Zofran prn for nausea - Will restart anticoagulation tomorrow or as per Sx - Encourage ambulation and OOB - Monitor VS DVT Prophylaxis - SCDs - Start anticoagulation as per Sx or AM Code status - Full code
[2018-05-01] MEDS: Potassium CL 10 MEQ/50 ML 50 ML IVPB SCH ×4 (17:33→23:45)
[2018-05-01] MEDS ORDERED: DiphenhydrAMINE 50 mg/ml Inj IVP PRN (20:11)
[2018-05-02] MEDS: metroNIDAZOLE 500mg/100ml NS 100 ML IVPB SCH ×2 (01:01→16:51)
[2018-05-02 07:42] LABS: BASO % 0.2 % (0.0-2.0); EOS % 0.2 % (0.0-4.0); HEMOGLOBIN 10.4 g/dL (12.0-16.0); LYMPH # 0.9 K/uL (1.0-4.3); LYMPH % 10.6 % (20.0-40.0); MEAN CELL VOLUME 88.1 fl (81.0-99.0); MEAN CORPUSCULAR HEMOGLOBIN 29.5 pg (27.0-31.0); MEAN CORPUSCULAR HGB CONC 33.5 g/dL (33.0-37.0); MEAN PLATELET VOLUME 9.3 fl (7.2-11.7); MONO # 0.6 K/uL (0.0-0.8); NEUT # 6.5 K/uL (1.8-7.0); RBC 3.51 Mil/uL (3.80-5.20); RED CELL DISTRIBUTION WIDTH 12.6 % (11.5-14.5)
--- NOTE | 2018-05-02 07:44 | CP.PCM.PN ---
<Manjinder Johnson - Last Filed: 05/02/18 07:39> Subjective - Date & Time of Evaluation Date of Evaluation: 05/02/18 Time of Evaluation: 07:39 - Subjective Subjective: General Surgery Progress Note for Dr. Muñoz 53F seen and evaluated at bedside this morning. No acute events overnight. NGT output dark brown 230cc overnight. Neeraj drain serosanguinous 50cc output overnight. Pain is controlled with medication. Patient is ambulating. No BM or passing of flatus. Denies f/c, n/v/d, SOB, CP, or urinary symptoms. Objective - Vital Signs/Intake and Output Vital Signs (last 24 hours): Temp Pulse Resp BP Pulse Ox 99.7 F H 82 19 111/72 95 05/02/18 00:34 05/02/18 00:34 05/02/18 00:34 05/02/18 00:34 05/02/18 00:34 Intake and Output: 05/02/18 05/02/18 06:59 18:59 Intake Total 960 Output Total 200 280 Balance -200 680 - Medications Medications: Current Medications Diphenhydramine HCl (Benadryl) 50 mg IVP Q6 PRN PRN Reason: Insomnia Last Admin: 05/01/18 22:13 Dose: 50 mg Ciprofloxacin (Cipro 400mg/200ml Dsw) 400 mg in 200 mls @ 200 mls/hr IVPB Q12 AKIL; Protocol Last Admin: 05/01/18 21:33 Dose: 200 mls/hr Metronidazole (Flagyl 500mg/100ml Ns) 100 mls @ 100 mls/hr IVPB Q8 AKIL; Protocol Last Admin: 05/02/18 01:01 Dose: 100 mls/hr Lactated Ringer's (Lactated Ringer's) 1,000 mls @ 80 mls/hr IV .[id number] AKIL Last Admin: 05/02/18 00:00 Dose: Not Given Morphine Sulfate (Morphine) 2 mg IVP Q4 PRN PRN Reason: Pain, Mild (1-3) Last Admin: 05/01/18 18:20 Dose: 2 mg Ondansetron HCl (Zofran Inj) 4 mg IVP Q4 PRN PRN Reason: Nausea/Vomiting Pantoprazole Sodium (Protonix Inj) 40 mg IVP DAILY AKIL - Labs Labs: 05/01/18 05:35 05/01/18 05:35 PT 12.6 Seconds (9.8-13.1) 04/29/18 10:40 INR 1.1 04/29/18 10:40 APTT 36.2 Seconds (25.6-37.1) 04/29/18 10:40 - Constitutional Appears: Well, Non-toxic, No Acute Distress - Head Exam Head Exam: ATRAUMATIC, NORMAL INSPECTION, NORMOCEPHALIC - Eye Exam Eye Exam: EOMI - ENT Exam ENT Exam: Mucous Membranes Dry - Respiratory Exam Respiratory Exam: NORMAL BREATHING PATTERN. absent: Respiratory Distress - Cardiovascular Exam Cardiovascular Exam: REGULAR RHYTHM - GI/Abdominal Exam GI & Abdominal Exam: Soft, Tenderness, Normal Bowel Sounds. absent: Distended - Neurological Exam Neurological Exam: Alert, Awake - Psychiatric Exam Psychiatric exam: Normal Affect, Normal Mood - Skin Skin Exam: Dry, Intact, Normal Color, Warm Assessment and Plan - Assessment and Plan (Free Text) Assessment: 53F s/p laparoscopic converted to open cholecystectomy w/ gastrotomy repair POD2 Plan: Continue NPO Ice chips for dry mouth IVF Analgesics and antiemetics Protonix Encourage ambulation and IS use Monitor NGT and Neeraj output Monitor vitals Further recommendations per Dr. Toni Johnson PGY1 <Reggie Muñoz - Last Filed: 05/02/18 15:18> Objective - Vital Signs/Intake and Output Vital Signs (last 24 hours): Temp Pulse Resp BP Pulse Ox 98.4 F 94 H 20 110/74 96 05/02/18 08:05 05/02/18 08:05 05/02/18 08:05 05/02/18 08:05 05/02/18 08:05 Intake and Output: 05/02/18 05/02/18 06:59 18:59 Intake Total 960 Output Total 200 280 Balance -200 680 - Medications Medications: Current Medications Diphenhydramine HCl (Benadryl) 50 mg IVP Q6 PRN PRN Reason: Insomnia Last Admin: 05/01/18 22:13 Dose: 50 mg Lactated Ringer's (Lactated Ringer's) 1,000 mls @ 80 mls/hr IV .[id number] Last Admin: 05/02/18 13:17 Dose: Not Given Morphine Sulfate (Morphine) 2 mg IVP Q4 PRN PRN Reason: Pain, Mild (1-3) Last Admin: 05/01/18 18:20 Dose: 2 mg Ondansetron HCl (Zofran Inj) 4 mg IVP Q4 PRN PRN Reason: Nausea/Vomiting Pantoprazole Sodium (Protonix Inj) 40 mg IVP DAILY AKIL Last Admin: 05/02/18 08:55 Dose: 40 mg - Labs Labs: 05/02/18 05:30 05/02/18 05:30 PT 12.6 Seconds (9.8-13.1) 04/29/18 10:40 INR 1.1 04/29/18 10:40 APTT 36.2 Seconds (25.6-37.1) 04/29/18 10:40 Assessment and Plan - Assessment and Plan (Free Text) Plan: agree with resident no acute events. Remains NPO with NGT in place. gen: NAD, awake, alert abd: soft, ND, phylicia incision c/d/i mary in place, SUPA in place plan cont NPO IVF protonix ambulation
[2018-05-02 08:22] LABS: BLOOD UREA NITROGEN 9 mg/dl (7-17); CALCIUM 8.4 mg/dL (8.4-10.2); GFR NON-AFRICAN AMERICAN > 60
--- NOTE | 2018-05-02 10:33 | CP.PCM.PN ---
Subjective - Date & Time of Evaluation Date of Evaluation: 05/02/18 Time of Evaluation: 10:10 - Subjective Subjective: 53 y/o F, s/p open cholecystectomy and gastrostomy repair POD #2 Patient seen and examined at bedside. No acute events overnight. Reports mild abdominal pain and cough. NGT output 50+ cc since this morning and 230cc overnight. Neeraj drain serosanguinous 50cc output overnight. Patient ambulating well w/o difficulties. Denies CP, SOB, F/C/N/V/D. Objective - Vital Signs/Intake and Output Vital Signs (last 24 hours): Temp Pulse Resp BP Pulse Ox 98.4 F 94 H 20 110/74 96 05/02/18 08:05 05/02/18 08:05 05/02/18 08:05 05/02/18 08:05 05/02/18 08:05 Intake and Output: 05/02/18 05/02/18 06:59 18:59 Intake Total 960 Output Total 200 280 Balance -200 680 - Medications Medications: Current Medications Diphenhydramine HCl (Benadryl) 50 mg IVP Q6 PRN PRN Reason: Insomnia Last Admin: 05/01/18 22:13 Dose: 50 mg Lactated Ringer's (Lactated Ringer's) 1,000 mls @ 80 mls/hr IV .[id number] [facility] Last Admin: 05/02/18 00:00 Dose: Not Given Morphine Sulfate (Morphine) 2 mg IVP Q4 PRN PRN Reason: Pain, Mild (1-3) Last Admin: 05/01/18 18:20 Dose: 2 mg Ondansetron HCl (Zofran Inj) 4 mg IVP Q4 PRN PRN Reason: Nausea/Vomiting Pantoprazole Sodium (Protonix Inj) 40 mg IVP DAILY [facility] Last Admin: 05/02/18 08:55 Dose: 40 mg - Labs Labs: 05/02/18 05:30 05/02/18 05:30 PT 12.6 Seconds (9.8-13.1) 04/29/18 10:40 INR 1.1 04/29/18 10:40 APTT 36.2 Seconds (25.6-37.1) 04/29/18 10:40 - Constitutional Appears: Non-toxic, No Acute Distress - Head Exam Head Exam: ATRAUMATIC, NORMOCEPHALIC - Eye Exam Eye Exam: EOMI, Normal appearance - ENT Exam ENT Exam: Mucous Membranes Moist - Neck Exam Neck Exam: Full ROM - Respiratory Exam Respiratory Exam: Clear to Ausculation Bilateral. absent: Rales, Rhonchi, Wheezes, Respiratory Distress - Cardiovascular Exam Cardiovascular Exam: REGULAR RHYTHM, +S1, +S2. absent: Murmur - GI/Abdominal Exam GI & Abdominal Exam: Soft, Tenderness, Normal Bowel Sounds. absent: Distended - Extremities Exam Extremities Exam: absent: Calf Tenderness, Pedal Edema, Tenderness - Neurological Exam Neurological Exam: Alert, Awake, Oriented x3 - Psychiatric Exam Psychiatric exam: Normal Affect, Normal Mood - Skin Skin Exam: Dry, Intact, Normal Color, Warm Assessment and Plan - Assessment and Plan (Free Text) Assessment: 53 y.o. female with PMHx of prediabetes admitted cholecystitis. S/P surgery on 04/30 Lap cholecystectomy converted to open. POD#2 Plan: Acute cholecystitis s/p open Cholecystectomy - POD#2, Stable - S/p Open cholecystectomy and repair of gastrotomy - Continue Cipro 400 Q12 and Flagyl 500 mg Q8hr(day 4) - Zofran, Morphine, Bentyl prn - Pantoprazole 40 mg Daily - Patient to remain NPO - C/W NGT and drain as per Sx - Will restart anticoagulation as per Sx, Encourage ambulation and OOB for now - Monitor VS DVT Prophylaxis - SCDs - Encourage ambulation and OOB - Will consider starting AC as per Sx. Code status - Full code
[2018-05-02] MEDS: Lactated Ringer's 1,000 ML IV SCH ×4 (13:16→23:37)
[2018-05-02] MEDS: Ciprofloxacin 400mg/200ml D5W 400 MG/200 ML BAG IVPB SCH (21:01)
[2018-05-03] MEDS: metroNIDAZOLE 500mg/100ml NS 100 ML IVPB SCH ×3 (00:26→16:11)
[2018-05-03] MEDS: Lactated Ringer's 1,000 ML IV SCH (01:00)
[2018-05-03 06:12] LABS: MEAN CELL VOLUME 90.2 fl (81.0-99.0); MEAN CORPUSCULAR HGB CONC 33.2 g/dL (33.0-37.0); RBC 3.32 Mil/uL (3.80-5.20); RED CELL DISTRIBUTION WIDTH 12.6 % (11.5-14.5); WHITE BLOOD COUNT 5.6 K/uL (4.8-10.8)
[2018-05-03 06:26] LABS: BLOOD UREA NITROGEN 12 mg/dl (7-17); CALCIUM 8.1 mg/dL (8.4-10.2); GFR NON-AFRICAN AMERICAN > 60
--- NOTE | 2018-05-03 07:53 | CP.PCM.PN ---
<Manjinder Johnson - Last Filed: 05/03/18 07:51> Subjective - Date & Time of Evaluation Date of Evaluation: 05/03/18 Time of Evaluation: 07:51 - Subjective Subjective: General Surgery Progress Note for Dr. Muñoz 53F seen and evaluated at bedside this morning. No acute events overnight. 200cc dark brown output from NGT. 5cc serosanguinous fluid from neeraj drain. No passing of flatus or BM yet. Patient ambulating and voiding. Denies f/c, n/v/d, SOB, CP, or urinary symptoms. Objective - Vital Signs/Intake and Output Vital Signs (last 24 hours): Temp Pulse Resp BP Pulse Ox 98.8 F 88 18 110/69 98 05/03/18 00:02 05/03/18 00:02 05/03/18 00:02 05/03/18 00:02 05/03/18 00:02 Intake and Output: 05/03/18 05/03/18 06:59 18:59 Intake Total 1260 Output Total 5 Balance 1255 - Medications Medications: Current Medications Diphenhydramine HCl (Benadryl) 50 mg IVP Q6 PRN PRN Reason: Insomnia Last Admin: 05/01/18 22:13 Dose: 50 mg Lactated Ringer's (Lactated Ringer's) 1,000 mls @ 80 mls/hr IV .[id number] AKIL Last Admin: 05/03/18 01:00 Dose: Not Given Ciprofloxacin (Cipro 400mg/200ml Dsw) 400 mg in 200 mls @ 200 mls/hr IVPB Q12 [facility]; Protocol Last Admin: 05/02/18 21:01 Dose: 200 mls/hr Metronidazole (Flagyl 500mg/100ml Ns) 100 mls @ 100 mls/hr IVPB Q8 [facility]IL; Protocol Last Admin: 05/03/18 00:26 Dose: 100 mls/hr Potassium Chloride (Potassium Cl 10meq/50ml Sterile Water) 50 mls @ 50 mls/hr IV Q1H AKIL Stop: 05/03/18 11:59 Morphine Sulfate (Morphine) 2 mg IVP Q4 PRN PRN Reason: Pain, Mild (1-3) Last Admin: 05/01/18 18:20 Dose: 2 mg Ondansetron HCl (Zofran Inj) 4 mg IVP Q4 PRN PRN Reason: Nausea/Vomiting Pantoprazole Sodium (Protonix Inj) 40 mg IVP DAILY [facility] Last Admin: 05/02/18 08:55 Dose: 40 mg - Labs Labs: 05/03/18 05:30 05/03/18 05:30 PT 12.6 Seconds (9.8-13.1) 04/29/18 10:40 INR 1.1 04/29/18 10:40 APTT 36.2 Seconds (25.6-37.1) 04/29/18 10:40 - Constitutional Appears: Well, Non-toxic, No Acute Distress - Head Exam Head Exam: ATRAUMATIC, NORMAL INSPECTION, NORMOCEPHALIC - Eye Exam Eye Exam: EOMI - ENT Exam ENT Exam: Mucous Membranes Moist - Respiratory Exam Respiratory Exam: NORMAL BREATHING PATTERN. absent: Respiratory Distress - Cardiovascular Exam Cardiovascular Exam: REGULAR RHYTHM - GI/Abdominal Exam GI & Abdominal Exam: Soft, Normal Bowel Sounds. absent: Distended, Tenderness - Neurological Exam Neurological Exam: Alert, Awake - Psychiatric Exam Psychiatric exam: Normal Affect, Normal Mood - Skin Skin Exam: Dry, Intact, Normal Color, Warm Additional comments: mary in RUQ and umbilical incisions c/d/i, nonerythematous, no drainage Assessment and Plan - Assessment and Plan (Free Text) Assessment: 53F s/p laparoscopic converted to open cholecystectomy and gastrotomy repair POD3 Plan: Will possibly remove NGT today - as of now continue to monitor NGT output Will ADAT once NGT is removed Monitor diet tolerance and bowel function Monitor Neeraj drain output Encourage ambulation and IS use Antiemetics and analgesics GI PPX Further recommendations per Dr. Toni Johnson PGY1 <Tomi Melvin - Last Filed: 05/03/18 11:26> Subjective - Date & Time of Evaluation Time of Evaluation: 10:35 - Subjective Subjective: Patient was seen and examined at the bedside. Agree with resident's note above. Passed some flatus this morning. Objective - Vital Signs/Intake and Output Vital Signs (last 24 hours): Temp Pulse Resp BP Pulse Ox 98.2 F 78 20 109/70 97 05/03/18 08:19 05/03/18 08:19 05/03/18 08:19 05/03/18 08:19 05/03/18 08:19 Intake and Output: 05/03/18 05/03/18 06:59 18:59 Intake Total 1260 Output Total 5 Balance 1255 - Medications Medications: Current Medications Diphenhydramine HCl (Benadryl) 50 mg IVP Q6 PRN PRN Reason: Insomnia Last Admin: 05/01/18 22:13 Dose: 50 mg Lactated Ringer's (Lactated Ringer's) 1,000 mls @ 80 mls/hr IV .[id number] AKIL Last Admin: 05/03/18 01:00 Dose: Not Given Ciprofloxacin (Cipro 400mg/200ml Dsw) 400 mg in 200 mls @ 200 mls/hr IVPB Q12 [facility]; Protocol Last Admin: 05/03/18 10:03 Dose: 200 mls/hr Metronidazole (Flagyl 500mg/100ml Ns) 100 mls @ 100 mls/hr IVPB Q8 [facility]IL; Protocol Last Admin: 05/03/18 09:00 Dose: 100 mls/hr Potassium Chloride (Potassium Cl 10meq/50ml Sterile Water) 50 mls @ 50 mls/hr IV Q1H [facility]IL Stop: 05/03/18 11:59 Morphine Sulfate (Morphine) 2 mg IVP Q4 PRN PRN Reason: Pain, Mild (1-3) Last Admin: 05/01/18 18:20 Dose: 2 mg Ondansetron HCl (Zofran Inj) 4 mg IVP Q4 PRN PRN Reason: Nausea/Vomiting Pantoprazole Sodium (Protonix Inj) 40 mg IVP DAILY [facility] Last Admin: 05/03/18 10:03 Dose: 40 mg - Labs Labs: 05/03/18 05:30 05/03/18 05:30 PT 12.6 Seconds (9.8-13.1) 04/29/18 10:40 INR 1.1 04/29/18 10:40 APTT 36.2 Seconds (25.6-37.1) 04/29/18 10:40 - GI/Abdominal Exam Additional comments: soft, very minimal barb-incisional tenderness, ND, BS+, no rebound, no guarding, Neeraj drain with serosangenous drainage, incisions clean, no erythema, no drainage, mary in place Assessment and Plan - Assessment and Plan (Free Text) Plan: - Removed NG tube - start clear liquid diet - pain control - IV fluids - Continue antibiotics - Insentive spirometry - Repeat labs in am - DVT ppx - out of bed and ambulate - Will follow
--- NOTE | 2018-05-03 09:25 | CP.PCM.PN ---
Subjective - Date & Time of Evaluation Date of Evaluation: 05/03/18 Time of Evaluation: 08:45 - Subjective Subjective: 53 y/o F, s/p open cholecystectomy and gastrostomy repair POD #3 Patient seen and examined at bedside. No acute events overnight. Patient ambulating OOB well w/o any difficulties. Reports mild abdominal pain and irritation of throat. NGT draining light brown liquid. Denies CP, SOB, F/C/N/V/D. Objective - Vital Signs/Intake and Output Vital Signs (last 24 hours): Temp Pulse Resp BP Pulse Ox 98.2 F 78 20 109/70 97 05/03/18 08:19 05/03/18 08:19 05/03/18 08:19 05/03/18 08:19 05/03/18 08:19 Intake and Output: 05/03/18 05/03/18 06:59 18:59 Intake Total 1260 Output Total 5 Balance 1255 - Medications Medications: Current Medications Diphenhydramine HCl (Benadryl) 50 mg IVP Q6 PRN PRN Reason: Insomnia Last Admin: 05/01/18 22:13 Dose: 50 mg Lactated Ringer's (Lactated Ringer's) 1,000 mls @ 80 mls/hr IV .[id number] AKIL Last Admin: 05/03/18 01:00 Dose: Not Given Ciprofloxacin (Cipro 400mg/200ml Dsw) 400 mg in 200 mls @ 200 mls/hr IVPB Q12 AKIL; Protocol Last Admin: 05/02/18 21:01 Dose: 200 mls/hr Metronidazole (Flagyl 500mg/100ml Ns) 100 mls @ 100 mls/hr IVPB Q8 AKIL; Protocol Last Admin: 05/03/18 00:26 Dose: 100 mls/hr Potassium Chloride (Potassium Cl 10meq/50ml Sterile Water) 50 mls @ 50 mls/hr IV Q1H AKIL Stop: 05/03/18 11:59 Morphine Sulfate (Morphine) 2 mg IVP Q4 PRN PRN Reason: Pain, Mild (1-3) Last Admin: 05/01/18 18:20 Dose: 2 mg Ondansetron HCl (Zofran Inj) 4 mg IVP Q4 PRN PRN Reason: Nausea/Vomiting Pantoprazole Sodium (Protonix Inj) 40 mg IVP DAILY [facility] Last Admin: 05/02/18 08:55 Dose: 40 mg - Labs Labs: 05/03/18 05:30 05/03/18 05:30 PT 12.6 Seconds (9.8-13.1) 04/29/18 10:40 INR 1.1 04/29/18 10:40 APTT 36.2 Seconds (25.6-37.1) 04/29/18 10:40 - Constitutional Appears: Non-toxic, No Acute Distress - Head Exam Head Exam: ATRAUMATIC, NORMOCEPHALIC - Eye Exam Eye Exam: EOMI, Normal appearance - ENT Exam ENT Exam: Mucous Membranes Moist - Neck Exam Neck Exam: Full ROM - Respiratory Exam Respiratory Exam: Clear to Ausculation Bilateral, NORMAL BREATHING PATTERN. absent: Rales, Rhonchi, Wheezes, Respiratory Distress - Cardiovascular Exam Cardiovascular Exam: REGULAR RHYTHM, +S1, +S2. absent: Murmur - GI/Abdominal Exam GI & Abdominal Exam: Soft, Tenderness, Normal Bowel Sounds. absent: Distended, Guarding, Rigid - Extremities Exam Extremities Exam: absent: Calf Tenderness, Pedal Edema, Tenderness - Neurological Exam Neurological Exam: Alert, Awake, Oriented x3 - Psychiatric Exam Psychiatric exam: Normal Affect, Normal Mood - Skin Skin Exam: Dry, Intact, Normal Color, Warm Assessment and Plan - Assessment and Plan (Free Text) Assessment: 53 y.o. female with PMHx of prediabetes admitted cholecystitis. S/P surgery on 04/30 Lap cholecystectomy converted to open. POD#3 Plan: Acute cholecystitis s/p open Cholecystectomy - POD#3, Stable - S/p Open cholecystectomy and repair of gastrotomy - Continue Cipro 400 Q12 and Flagyl 500 mg Q8hr(day 5) - Zofran, Morphine, Bentyl prn - Pantoprazole 40 mg Daily - NGT draining light brown liquid - As per surgery: Possibly remove NGT today, as of now continue to monitor NGT output, Will ADAT once NGT is removed - Will restart anticoagulation as per Sx, Encourage ambulation and OOB for now - Monitor VS DVT Prophylaxis - SCDs - Continue ambulation and OOB - Will consider starting AC as per Sx. Code status - Full code
[2018-05-03] MEDS: Ciprofloxacin 400mg/200ml D5W 400 MG/200 ML BAG IVPB SCH ×2 (10:03→20:54)
[2018-05-03] MEDS: Potassium CL 10 MEQ/50 ML 50 ML IV SCH ×3 (11:55→11:58)
[2018-05-03] MEDS: Morphine 4 MG/ML VIAL IVP PRN (17:05)
[2018-05-04] MEDS: metroNIDAZOLE 500mg/100ml NS 100 ML IVPB SCH ×3 (00:33→16:12)
[2018-05-04] MEDS: Morphine 4 MG/ML VIAL IVP PRN (01:07)
[2018-05-04 05:58] LABS: HEMOGLOBIN 9.6 g/dL (12.0-16.0); MEAN CELL VOLUME 87.3 fl (81.0-99.0); MEAN CORPUSCULAR HEMOGLOBIN 29.4 pg (27.0-31.0); MEAN CORPUSCULAR HGB CONC 33.7 g/dL (33.0-37.0); RBC 3.28 Mil/uL (3.80-5.20); RED CELL DISTRIBUTION WIDTH 12.4 % (11.5-14.5); WHITE BLOOD COUNT 4.9 K/uL (4.8-10.8)
--- NOTE | 2018-05-04 05:58 | CP.PCM.PN ---
Subjective - Date & Time of Evaluation Date of Evaluation: 05/04/18 Time of Evaluation: 05:56 - Subjective Subjective: SURGERY NOTE FOR DR. MORENO 53F seen and examined at bedside. No acute events overnight. Patient denies pain, nausea, vomiting, fevers. She admits to having multiple bowel movements. She states she is tolerating liquid diet. Objective - Vital Signs/Intake and Output Vital Signs (last 24 hours): Temp Pulse Resp BP Pulse Ox 99.5 F 77 18 111/74 98 05/03/18 23:25 05/03/18 23:25 05/03/18 23:25 05/03/18 23:25 05/03/18 23:25 Intake and Output: 05/03/18 05/04/18 18:59 06:59 Intake Total 1260 Output Total 5 Balance 1255 - Medications Medications: Current Medications Diphenhydramine HCl (Benadryl) 50 mg IVP Q6 PRN PRN Reason: Insomnia Last Admin: 05/01/18 22:13 Dose: 50 mg Lactated Ringer's (Lactated Ringer's) 1,000 mls @ 80 mls/hr IV .[id number] AKIL Last Admin: 05/03/18 01:00 Dose: Not Given Ciprofloxacin (Cipro 400mg/200ml Dsw) 400 mg in 200 mls @ 200 mls/hr IVPB Q12 AKIL; Protocol Last Admin: 05/03/18 20:54 Dose: 200 mls/hr Metronidazole (Flagyl 500mg/100ml Ns) 100 mls @ 100 mls/hr IVPB Q8 AKIL; Protocol Last Admin: 05/04/18 00:33 Dose: 100 mls/hr Morphine Sulfate (Morphine) 2 mg IVP Q4 PRN PRN Reason: Pain, Mild (1-3) Last Admin: 05/04/18 01:07 Dose: 2 mg Ondansetron HCl (Zofran Inj) 4 mg IVP Q4 PRN PRN Reason: Nausea/Vomiting Pantoprazole Sodium (Protonix Inj) 40 mg IVP DAILY [facility] Last Admin: 05/03/18 10:03 Dose: 40 mg - Labs Labs: 05/03/18 05:30 05/03/18 05:30 PT 12.6 Seconds (9.8-13.1) 04/29/18 10:40 INR 1.1 12/20/18 10:40 APTT 36.2 Seconds (25.6-37.1) 04/29/18 10:40 - Constitutional Appears: Non-toxic, No Acute Distress - Respiratory Exam Respiratory Exam: Clear to Ausculation Bilateral, NORMAL BREATHING PATTERN - Cardiovascular Exam Cardiovascular Exam: REGULAR RHYTHM, +S1, +S2 - GI/Abdominal Exam GI & Abdominal Exam: Soft. absent: Distended, Firm, Guarding, Rigid, Rebound Additional comments: incisions clean dry and intact. Drain output serosanguinous, more serous. approx 10cc output overnight - Extremities Exam Extremities Exam: absent: Pedal Edema, Tenderness - Neurological Exam Neurological Exam: Alert, Awake Assessment and Plan - Assessment and Plan (Free Text) Assessment: 53F s/p open cholecystectomy with repair of gastrotomy POD#4 Plan: - Advance diet as tolerated - Pain control - Monitor for further bowel function - Monitor drain output - Out of bed and ambulating - Further recs discuss with Dr. Olegario Amato, PGY3
[2018-05-04 08:31] LABS: ALB/GLOB RATIO 1.2 (1.0-2.1); ALBUMIN 3.6 g/dL (3.5-5.0); ALT/SGPT 51 U/L (9-52); AST/SGOT 29 U/L (14-36); BLOOD UREA NITROGEN 7 mg/dl (7-17); CALCIUM 8.7 mg/dL (8.4-10.2); GFR NON-AFRICAN AMERICAN > 60
[2018-05-04] MEDS: Ciprofloxacin 400mg/200ml D5W 400 MG/200 ML BAG IVPB SCH ×2 (08:43→20:43)
--- NOTE | 2018-05-04 11:40 | CP.PCM.PN ---
Subjective - Date & Time of Evaluation Date of Evaluation: 05/04/18 Time of Evaluation: 09:30 - Subjective Subjective: 53 y/o F, s/p open cholecystectomy and gastrostomy repair POD #4 Patient seen and evaluated at bedside. No acute events overnight. NGT removed today and patient started on liquid diet yesterday which she tolerated well. Patient continues to have mild abdominal pain. Denies nausea, vomiting, diarrhea or constipation. Passing gas and had 1 BM today which was greenish brown. Patient ambulating OOB w/o difficulties. Voiding well w/o difficulties. Neeraj drain in placed. Drained 0 cc. Objective - Vital Signs/Intake and Output Vital Signs (last 24 hours): Temp Pulse Resp BP Pulse Ox 98.6 F 76 18 114/71 98 05/04/18 08:16 05/04/18 08:16 05/04/18 08:16 05/04/18 08:16 05/04/18 08:16 - Medications Medications: Current Medications Diphenhydramine HCl (Benadryl) 50 mg IVP Q6 PRN PRN Reason: Insomnia Last Admin: 05/01/18 22:13 Dose: 50 mg Lactated Ringer's (Lactated Ringer's) 1,000 mls @ 80 mls/hr IV .[id number] AKIL Last Admin: 05/03/18 01:00 Dose: Not Given Ciprofloxacin (Cipro 400mg/200ml Dsw) 400 mg in 200 mls @ 200 mls/hr IVPB Q12 AKIL; Protocol Last Admin: 05/04/18 08:43 Dose: 200 mls/hr Metronidazole (Flagyl 500mg/100ml Ns) 100 mls @ 100 mls/hr IVPB Q8 AKIL; Protocol Last Admin: 05/04/18 08:43 Dose: 100 mls/hr Morphine Sulfate (Morphine) 2 mg IVP Q4 PRN PRN Reason: Pain, Mild (1-3) Last Admin: 05/04/18 01:07 Dose: 2 mg Ondansetron HCl (Zofran Inj) 4 mg IVP Q4 PRN PRN Reason: Nausea/Vomiting Pantoprazole Sodium (Protonix Inj) 40 mg IVP DAILY [facility] Last Admin: 05/04/18 08:44 Dose: 40 mg - Labs Labs: 05/04/18 05:16 05/04/18 08:05 PT 12.6 Seconds (9.8-13.1) 04/29/18 10:40 INR 1.1 04/29/18 10:40 APTT 36.2 Seconds (25.6-37.1) 04/29/18 10:40 - Constitutional Appears: Non-toxic, No Acute Distress - Head Exam Head Exam: ATRAUMATIC, NORMOCEPHALIC - Eye Exam Eye Exam: EOMI, Normal appearance - ENT Exam ENT Exam: Mucous Membranes Moist - Neck Exam Neck Exam: Full ROM - Respiratory Exam Respiratory Exam: Clear to Ausculation Bilateral, NORMAL BREATHING PATTERN. absent: Rales, Rhonchi, Wheezes, Respiratory Distress - Cardiovascular Exam Cardiovascular Exam: REGULAR RHYTHM, +S1, +S2. absent: Murmur - GI/Abdominal Exam GI & Abdominal Exam: Soft, Tenderness, Normal Bowel Sounds. absent: Distended, Guarding, Rigid - Extremities Exam Extremities Exam: absent: Calf Tenderness, Pedal Edema, Tenderness - Back Exam Back Exam: absent: CVA tenderness (L), CVA tenderness (R) - Neurological Exam Neurological Exam: Alert, Awake, Normal Gait, Oriented x3 - Psychiatric Exam Psychiatric exam: Normal Affect, Normal Mood - Skin Skin Exam: Dry, Intact, Normal Color, Warm Assessment and Plan - Assessment and Plan (Free Text) Assessment: 53 y.o. female with PMHx of prediabetes admitted cholecystitis. S/P surgery on 04/30 Lap cholecystectomy converted to open. POD#4 Plan: Acute cholecystitis s/p open Cholecystectomy - POD#4, Stable - S/p Open cholecystectomy and repair of gastrotomy - Continue Cipro 400 Q12 and Flagyl 500 mg Q8hr(day 6) - Zofran, Morphine, Bentyl prn - Pantoprazole 40 mg Daily - NGT DCed yesterday. - Neeraj drain in place. - Patient on Liquid diet, will advance as tolerated. - Will restart anticoagulation as per Sx, Encourage ambulation and OOB for now - Monitor CBC Anemia - Most likely secondary to acute blood loss followed by dilutional - HgB 9.6 - Monitor CBC DVT Prophylaxis - SCDs - Continue ambulation and OOB - Will consider starting AC as per Sx. Code status - Full code
--- NOTE | 2018-05-04 14:24 | CP.PCM.PN ---
Subjective - Date & Time of Evaluation Date of Evaluation: 05/04/18 Time of Evaluation: 14:21 - Subjective Subjective: General Surgery Pt seen and examined this afternoon. She reports tolerating regular diet today. (-) N/V. (+) flatus, (+) BM. She reports she has been ambulating. She reports having some abdominal pain with certain positions. Labs and vitals noted. Drain: 15ml out (serous) PE Gen: Pt laying in bed in NAD Skin: warm and dry Cardio: s1s2 RRR Lungs: CTA bilaterally Abd: Soft, stapled incision c/d/i. (+) tenderness surrounding incisions. Drain with scant serous fluid. (-) distention. Extr: (-) calf tenderness bilaterally A/P POD 4 Lap aleah converted to open, repair of gastrotomy Pt doing well Monitor drain output, drain likely to be d/c'd tomorrow. monitor labs monitor vitals continue antibiotics Objective - Vital Signs/Intake and Output Vital Signs (last 24 hours): Temp Pulse Resp BP Pulse Ox 98.6 F 76 18 114/71 98 05/04/18 08:16 05/04/18 08:16 05/04/18 08:16 05/04/18 08:16 05/04/18 08:16 - Medications Medications: Current Medications Diphenhydramine HCl (Benadryl) 50 mg PO HS PRN PRN Reason: Sleep Lactated Ringer's (Lactated Ringer's) 1,000 mls @ 80 mls/hr IV .[id number] [facility] Last Admin: 05/03/18 01:00 Dose: Not Given Ciprofloxacin (Cipro 400mg/200ml Dsw) 400 mg in 200 mls @ 200 mls/hr IVPB Q12 AKIL; Protocol Last Admin: 05/04/18 08:43 Dose: 200 mls/hr Metronidazole (Flagyl 500mg/100ml Ns) 100 mls @ 100 mls/hr IVPB Q8 AKIL; Protocol Last Admin: 05/04/18 08:43 Dose: 100 mls/hr Morphine Sulfate (Morphine) 2 mg IVP Q4 PRN PRN Reason: Pain, Mild (1-3) Last Admin: 05/04/18 01:07 Dose: 2 mg Ondansetron HCl (Zofran Inj) 4 mg IVP Q4 PRN PRN Reason: Nausea/Vomiting Pantoprazole Sodium (Protonix Inj) 40 mg IVP DAILY [facility] Last Admin: 05/04/18 08:44 Dose: 40 mg - Labs Labs: 05/04/18 05:16 05/04/18 08:05 PT 12.6 Seconds (9.8-13.1) 04/29/18 10:40 INR 1.1 04/29/18 10:40 APTT 36.2 Seconds (25.6-37.1) 04/29/18 10:40
[2018-05-04] MEDS: Lactated Ringer's 1,000 ML IV SCH (16:13)
[2018-05-04] MEDS ORDERED: Oxycodone/Acetaminophen 5/325 mg Tab PO PRN (21:52)
[2018-05-05] MEDS: metroNIDAZOLE 500mg/100ml NS 100 ML IVPB SCH ×2 (00:16→09:40)
[2018-05-05 06:14] LABS: HEMOGLOBIN 10.7 g/dL (12.0-16.0); MEAN CELL VOLUME 87.2 fl (81.0-99.0); MEAN CORPUSCULAR HGB CONC 34.4 g/dL (33.0-37.0); RBC 3.56 Mil/uL (3.80-5.20); RED CELL DISTRIBUTION WIDTH 12.3 % (11.5-14.5); WHITE BLOOD COUNT 4.5 K/uL (4.8-10.8)
[2018-05-05 06:19] LABS: BLOOD UREA NITROGEN 8 mg/dl (7-17); CALCIUM 8.7 mg/dL (8.4-10.2); GFR NON-AFRICAN AMERICAN > 60
--- NOTE | 2018-05-05 07:13 | CP.PCM.PN ---
<Ty Amato - Last Filed: 05/05/18 07:14> Subjective - Date & Time of Evaluation Date of Evaluation: 05/05/18 Time of Evaluation: 07:11 - Subjective Subjective: SURGERY NOTE FOR DR. MORENO 53F seen and examined at bedside. Patient denies any pain, nausea, vomiting. She has been tolerating diet, and having normal bowel function. Objective - Vital Signs/Intake and Output Vital Signs (last 24 hours): Temp Pulse Resp BP Pulse Ox 98.6 F 84 20 102/69 99 05/05/18 00:02 05/05/18 00:02 05/05/18 00:02 05/05/18 00:02 05/05/18 00:02 - Medications Medications: Current Medications Diphenhydramine HCl (Benadryl) 50 mg PO HS PRN PRN Reason: Sleep Ciprofloxacin (Cipro 400mg/200ml Dsw) 400 mg in 200 mls @ 200 mls/hr IVPB Q12 [facility]IL; Protocol Last Admin: 05/04/18 20:43 Dose: 200 mls/hr Metronidazole (Flagyl 500mg/100ml Ns) 100 mls @ 100 mls/hr IVPB Q8 [facility]IL; Protocol Last Admin: 05/05/18 00:16 Dose: 100 mls/hr Ondansetron HCl (Zofran Inj) 4 mg IVP Q4 PRN PRN Reason: Nausea/Vomiting Oxycodone/Acetaminophen (Percocet 5/325 Mg Tab) 1 tab PO Q4 PRN PRN Reason: Pain, moderate (4-7) Stop: 05/07/18 21:53 Pantoprazole Sodium (Protonix Inj) 40 mg IVP DAILY [facility]IL Last Admin: 05/04/18 08:44 Dose: 40 mg - Labs Labs: 05/05/18 05:30 05/05/18 05:30 PT 12.6 Seconds (9.8-13.1) 04/29/18 10:40 INR 1.1 04/29/18 10:40 APTT 36.2 Seconds (25.6-37.1) 04/29/18 10:40 - Constitutional Appears: Non-toxic, No Acute Distress - Respiratory Exam Respiratory Exam: Clear to Ausculation Bilateral, NORMAL BREATHING PATTERN - Cardiovascular Exam Cardiovascular Exam: REGULAR RHYTHM, +S1, +S2 - GI/Abdominal Exam GI & Abdominal Exam: Soft. absent: Distended, Firm, Guarding, Rigid, Tenderness, Rebound Additional comments: SUPA - Minimal serous output, mary in place - Neurological Exam Neurological Exam: Alert, Awake Assessment and Plan - Assessment and Plan (Free Text) Assessment: 53F s/p open cholecystectomy with repair of gastrotomy POD#5 Plan: - Monitor drain output - Out of bed and ambulating - Further recs discuss with Dr. Olegario Amato, PGY3 <Reggie Muñoz - Last Filed: 05/05/18 13:42> Objective - Vital Signs/Intake and Output Vital Signs (last 24 hours): Temp Pulse Resp BP Pulse Ox 97.9 F 70 19 101/68 97 05/05/18 07:51 05/05/18 07:51 05/05/18 07:51 05/05/18 07:51 05/05/18 07:51 - Medications Medications: Current Medications Diphenhydramine HCl (Benadryl) 50 mg PO HS PRN PRN Reason: Sleep Ciprofloxacin (Cipro 400mg/200ml Dsw) 400 mg in 200 mls @ 200 mls/hr IVPB Q12 AKIL; Protocol Last Admin: 05/05/18 09:41 Dose: 200 mls/hr Metronidazole (Flagyl 500mg/100ml Ns) 100 mls @ 100 mls/hr IVPB Q8 AKIL; Protocol Last Admin: 05/05/18 09:40 Dose: 100 mls/hr Ondansetron HCl (Zofran Inj) 4 mg IVP Q4 PRN PRN Reason: Nausea/Vomiting Oxycodone/Acetaminophen (Percocet 5/325 Mg Tab) 1 tab PO Q4 PRN PRN Reason: Pain, moderate (4-7) Stop: 05/07/18 21:53 Pantoprazole Sodium (Protonix Inj) 40 mg IVP DAILY [facility] Last Admin: 05/05/18 09:41 Dose: 40 mg - Labs Labs: 05/05/18 05:30 05/05/18 05:30 PT 12.6 Seconds (9.8-13.1) 04/29/18 10:40 INR 1.1 04/29/18 10:40 APTT 36.2 Seconds (25.6-37.1) 04/29/18 10:40 Assessment and Plan - Assessment and Plan (Free Text) Plan: agree with resident no overnight events. Tolerating diet. No acute complaints. SUPA removed abd: soft, NT, ND, incisions c/d/i mary in place cont diet staple for dc f/u in Office with Dr. hernández in 2 weeks
[2018-05-05 07:51] VITALS: BP 101/68; PULSE 70; RESP 19; TEMP 97.9; O2SAT 97
[2018-05-05] MEDS: Ciprofloxacin 400mg/200ml D5W 400 MG/200 ML BAG IVPB SCH (09:41)
--- NOTE | 2018-05-05 13:14 | CP.PCM.DIS ---
<Sridhar Rodriguez - Last Filed: 05/05/18 18:06> Provider - Provider Date of Admission: 04/29/18 14:23 Attending physician: Earl Villegas MD Consults: 04/29/18 17:16 Surgery [General Surgery Consult] Routine Comment: Consulting Provider: Tomi Melvin Consulting Physician: Tomi Melvin Reason for Consult: cholelithiasis ,r/o cholecystitis Time Spent in preparation of Discharge (in minutes): 35 Diagnosis - Discharge Diagnosis (1) Cholecystitis Status: Acute (2) S/P cholecystectomy Status: Acute Comment: S/P Open cholecystectomy and Gastrostomy repair Hospital Course - Lab Results Lab Results: Micro Results 04/29/18 14:30 Blood-Venous Blood Culture - Final NO GROWTH AFTER 5 DAYS 04/29/18 14:30 Blood-Venous Gram Stain - Final TEST NOT PERFORMED 04/29/18 14:06 Blood-Venous Blood Culture - Final NO GROWTH AFTER 5 DAYS 04/29/18 14:06 Blood-Venous Gram Stain - Final TEST NOT PERFORMED Most Recent Lab Values WBC 4.5 K/uL (4.8-10.8) L 05/05/18 05:30 RBC 3.56 Mil/uL (3.80-5.20) L 05/05/18 05:30 Hgb 10.7 g/dL (12.0-16.0) L 05/05/18 05:30 Hct 31.0 % (34.0-47.0) L 05/05/18 05:30 MCV 87.2 fl (81.0-99.0) 05/05/18 05:30 MCH 30.0 pg (27.0-31.0) 05/05/18 05:30 MCHC 34.4 g/dL (33.0-37.0) 05/05/18 05:30 RDW 12.3 % (11.5-14.5) 05/05/18 05:30 Plt Count 219 K/uL (130-400) 05/05/18 05:30 MPV 9.3 fl (7.2-11.7) 05/02/18 05:30 Neut % (Auto) 81.0 % (50.0-75.0) H 05/02/18 05:30 Lymph % (Auto) 10.6 % (20.0-40.0) L 05/02/18 05:30 Piute % (Auto) 8.0 % (0.0-10.0) 05/02/18 05:30 Eos % (Auto) 0.2 % (0.0-4.0) 05/02/18 05:30 Baso % (Auto) 0.2 % (0.0-2.0) 05/02/18 05:30 Neut # (Auto) 6.5 K/uL (1.8-7.0) 05/02/18 05:30 Lymph # (Auto) 0.9 K/uL (1.0-4.3) L 05/02/18 05:30 Pi[place] # (Auto) 0.6 K/uL (0.0-0.8) 05/02/18 05:30 Eos # (Auto) 0.0 K/uL (0.0-0.7) 05/02/18 05:30 Baso # (Auto) 0.0 K/uL (0.0-0.2) 05/02/18 05:30 Neutrophils % (Manual) 88 % (42-75) H 04/29/18 10:40 Band Neutrophils % 1 % (0-2) 04/29/18 10:40 Lymphocytes % (Manual) 5 % (20-50) L 04/29/18 10:40 Monocytes % (Manual) 6 % (0-10) 04/29/18 10:40 Platelet Estimate Normal (NORMAL) 04/29/18 10:40 RBC Morphology Normal (NORMAL) 04/29/18 10:40 PT 12.6 Seconds (9.8-13.1) 04/29/18 10:40 INR 1.1 04/29/18 10:40 APTT 36.2 Seconds (25.6-37.1) 04/29/18 10:40 Sodium 141 mmol/l (132-148) 05/05/18 05:30 Potassium 4.0 MMOL/L (3.6-5.0) 05/05/18 05:30 Chloride 105 mmol/L (98-107) 05/05/18 05:30 Carbon Dioxide 30 mmol/L (22-30) 05/05/18 05:30 Anion Gap 10 (10-20) 05/05/18 05:30 BUN 8 mg/dl (7-17) 05/05/18 05:30 Creatinine 0.5 mg/dl (0.7-1.2) L 05/05/18 05:30 Est GFR ( Amer) > 60 05/05/18 05:30 Est GFR (Non-Af Amer) > 60 05/05/18 05:30 Random Glucose 121 mg/dL (65-105) H 05/05/18 05:30 Calcium 8.7 mg/dL (8.4-10.2) 05/05/18 05:30 Phosphorus 2.8 mg/dl (2.5-4.5) 05/02/18 05:30 Magnesium 2.0 MG/DL (1.6-2.3) 05/02/18 05:30 Total Bilirubin 0.7 mg/dl (0.2-1.3) 05/04/18 08:05 AST 29 U/L (14-36) 05/04/18 08:05 ALT 51 U/L (9-52) 05/04/18 08:05 Alkaline Phosphatase 46 U/L (38-126) 05/04/18 08:05 Total Protein 6.6 G/DL (6.3-8.2) 05/04/18 08:05 Albumin 3.6 g/dL (3.5-5.0) 05/04/18 08:05 Globulin 3.0 gm/dL (2.2-3.9) 05/04/18 08:05 Albumin/Globulin Ratio 1.2 (1.0-2.1) 05/04/18 08:05 Lipase 111 U/L (23-300) 04/29/18 10:40 - Hospital Course Hospital Course: 53 yo female with PMHx prediabetes presents to ER with complaints of RUQ abdom inal pain that started 3 days ago. Patient evaluated in ER and started on Ciprofloxacin, metronidazole, zofran and IVFs. CT abdomen consistent with cholecystitis. Surgery consulted and patient underwent Lap cholecystectomy which was converted to open cholecystectomy with gastrostomy repair secondary to extensive adhesions. Patient kept NPO, NGT and drain placed which drained for 3- 4 days. NGT discontinued. Patient gradually started on clear liquid diet and advanced to regular diet which she tolerated well. SUPA drain D/Cam. Patient remained afebrile with VSS during the hospital course. Patient completed 7 days of antibiotics(Ciprofloxacin and Flagyl). Patient to be discharged home with percocet 5/325 mg and will F/U with Dr. Melvin in 10 days for staple removal. Discharge Medications - Percocet 5/325 mg tab Q4hr PRN for pain.(Script provided by Dr. Osborne) Discharge Exam - Head Exam Head Exam: ATRAUMATIC, NORMOCEPHALIC - Eye Exam Eye Exam: EOMI, Normal appearance - ENT Exam ENT Exam: Mucous Membranes Moist - Neck Exam Neck exam: Full Rom - Respiratory Exam Respiratory Exam: Clear to PA & Lateral. absent: Rales, Rhonchi, Wheezes, Resp iratory Distress - Cardiovascular Exam Cardiovascular Exam: REGULAR RHYTHM, +S1, +S2. absent: Systolic Murmur - GI/Abdominal Exam GI & Abdominal Exam: Normal Bowel Sounds, Soft. absent: Distended Additional comments: Appropriated minimal tenderness along incision line w/o erythema - Back Exam Back exam: absent: CVA tenderness (L), CVA tenderness (R) - Neurological Exam Neurological exam: Alert, Altered, Normal Gait, Oriented x3 - Psychiatric Exam Psychiatric exam: Normal Affect, Normal Mood - Skin Skin Exam: Dry, Intact, Normal Color, Warm Discharge Plan - Discharge Medications Prescriptions: RX: oxyCODONE/Acetaminophen [Percocet 5/325 mg Tab] 1 tab PO Q4 PRN #10 tab PRN Reason: Pain, Moderate (4-7) - Follow Up Plan Condition: STABLE Disposition: HOME/ ROUTINE Instructions: Cholecystectomy, Laparoscopic Surgery, Cholecystitis (DC) Additional Instructions: follow up with primary MD 1 week F/U with Dr Melvin in 10 days for staple removal hacer irene con lawton primario dentro de 1 semana hacer irene con el cirujano dr Melvin en 10 garcia para sacar grapas Referrals: Tomi Melvin MD [Staff Provider] - Avi Kirby MD [Medical Doctor] - <Jenny Bliss - Last Filed: 05/08/18 00:35> Provider - Provider Date of Admission: 04/29/18 14:23 Attending physician: Earl Villegas MD Consults: 04/29/18 17:16 Surgery [General Surgery Consult] Routine Comment: Consulting Provider: Tomi Melvin Consulting Physician: Tomi Melvin Reason for Consult: cholelithiasis ,r/o cholecystitis Hospital Course - Lab Results Lab Results: Micro Results 04/29/18 14:30 Blood-Venous Blood Culture - Final NO GROWTH AFTER 5 DAYS 04/29/18 14:30 Blood-Venous Gram Stain - Final TEST NOT PERFORMED 04/29/18 14:06 Blood-Venous Blood Culture - Final NO GROWTH AFTER 5 DAYS 04/29/18 14:06 Blood-Venous Gram Stain - Final TEST NOT PERFORMED Most Recent Lab Values WBC 4.5 K/uL (4.8-10.8) L 05/05/18 05:30 RBC 3.56 Mil/uL (3.80-5.20) L 05/05/18 05:30 Hgb 10.7 g/dL (12.0-16.0) L 05/05/18 05:30 Hct 31.0 % (34.0-47.0) L 05/05/18 05:30 MCV 87.2 fl (81.0-99.0) 05/05/18 05:30 MCH 30.0 pg (27.0-31.0) 05/05/18 05:30 MCHC 34.4 g/dL (33.0-37.0) 05/05/18 05:30 RDW 12.3 % (11.5-14.5) 05/05/18 05:30 Plt Count 219 K/uL (130-400) 05/05/18 05:30 MPV 9.3 fl (7.2-11.7) 05/02/18 05:30 Neut % (Auto) 81.0 % (50.0-75.0) H 05/02/18 05:30 Lymph % (Auto) 10.6 % (20.0-40.0) L 05/02/18 05:30 Piute % (Auto) 8.0 % (0.0-10.0) 05/02/18 05:30 Eos % (Auto) 0.2 % (0.0-4.0) 05/02/18 05:30 Baso % (Auto) 0.2 % (0.0-2.0) 05/02/18 05:30 Neut # (Auto) 6.5 K/uL (1.8-7.0) 05/02/18 05:30 Lymph # (Auto) 0.9 K/uL (1.0-4.3) L 05/02/18 05:30 Pi[place] # (Auto) 0.6 K/uL (0.0-0.8) 05/02/18 05:30 Eos # (Auto) 0.0 K/uL (0.0-0.7) 05/02/18 05:30 Baso # (Auto) 0.0 K/uL (0.0-0.2) 05/02/18 05:30 Neutrophils % (Manual) 88 % (42-75) H 04/29/18 10:40 Band Neutrophils % 1 % (0-2) 04/29/18 10:40 Lymphocytes % (Manual) 5 % (20-50) L 04/29/18 10:40 Monocytes % (Manual) 6 % (0-10) 04/29/18 10:40 Platelet Estimate Normal (NORMAL) 04/29/18 10:40 RBC Morphology Normal (NORMAL) 04/29/18 10:40 PT 12.6 Seconds (9.8-13.1) 04/29/18 10:40 INR 1.1 04/29/18 10:40 APTT 36.2 Seconds (25.6-37.1) 04/29/18 10:40 Sodium 141 mmol/l (132-148) 05/05/18 05:30 Potassium 4.0 MMOL/L (3.6-5.0) 05/05/18 05:30 Chloride 105 mmol/L (98-107) 05/05/18 05:30 Carbon Dioxide 30 mmol/L (22-30) 05/05/18 05:30 Anion Gap 10 (10-20) 05/05/18 05:30 BUN 8 mg/dl (7-17) 05/05/18 05:30 Creatinine 0.5 mg/dl (0.7-1.2) L 05/05/18 05:30 Est GFR ( Amer) > 60 05/05/18 05:30 Est GFR (Non-Af Amer) > 60 05/05/18 05:30 Random Glucose 121 mg/dL (65-105) H 05/05/18 05:30 Calcium 8.7 mg/dL (8.4-10.2) 05/05/18 05:30 Phosphorus 2.8 mg/dl (2.5-4.5) 05/02/18 05:30 Magnesium 2.0 MG/DL (1.6-2.3) 05/02/18 05:30 Total Bilirubin 0.7 mg/dl (0.2-1.3) 05/04/18 08:05 AST 29 U/L (14-36) 05/04/18 08:05 ALT 51 U/L (9-52) 05/04/18 08:05 Alkaline Phosphatase 46 U/L (38-126) 05/04/18 08:05 Total Protein 6.6 G/DL (6.3-8.2) 05/04/18 08:05 Albumin 3.6 g/dL (3.5-5.0) 05/04/18 08:05 Globulin 3.0 gm/dL (2.2-3.9) 05/04/18 08:05 Albumin/Globulin Ratio 1.2 (1.0-2.1) 05/04/18 08:05 Lipase 111 U/L (23-300) 04/29/18 10:40 Attending/Attestation - Attestation I have personally seen and examined this patient.: Yes I have fully participated in the care of the patient.: Yes I have reviewed all pertinent clinical information, including history, physical exam and plan: Yes Notes (Text): 05/08/18 00:35 agree with findings and plan as above
== END 2018-05-05 14:36 | disposition home or self-care (01) | DRG 262 ==
LOC: H.ER 10:01 → H.ERHOLD 14:23 → H.MEDSURG1 15:45
PROVIDERS: ADMIT Hospitalist; ATTEND Hospitalist
PROC: 0FJ44ZZ Inspection of Gallbladder, Percutaneous Endoscopic Approach (ICD-10-PCS; 2018-04-30)
PROC: 0FT40ZZ Resection of Gallbladder, Open Approach (ICD-10-PCS; principal; 2018-04-30 07:45)
DX: K80.12 Calculus of gallbladder with acute and chronic cholecystitis without obstruction (principal); D62 Acute posthemorrhagic anemia; K66.0 Peritoneal adhesions (postprocedural) (postinfection); E11.9 Type 2 diabetes mellitus without complications; Z53.31 Laparoscopic surgical procedure converted to open procedure; Z88.0 Allergy status to penicillin